=== PATIENT | male | born 1965 | race Caucasian/White ===

== ENCOUNTER 2023-06-08 07:03 | Outpatient (OUT) | payer OTHER, SELFPAY ==
--- NOTE | 2023-06-08 06:45 | NM_ITS ---
The [address] [address] Patient Name: LEWIS AVERY MRN: [id number] date: 1965 Sex: M Assigned Patient Location: [place] Location: [place] Accession/Order Number: [id number] Exam Date: 06/08/2023 06:45 Report Date: 06/08/2023 13:30 At the request of: MARK GOODSON Procedure: NV hepatobiliary w pharm EXAMINATION: NV hepatobiliary w pharm HISTORY: ABDOMINAL PAIN COMPARISON: No relevant comparison available. TECHNIQUE: Radionuclide hepatobiliary imaging was performed after intravenous injection of 4.9 mCi Tc-99m GUILLERMINA derivative with sequential acquisitions every 1 minute for one hour. Hepatobiliary imaging with gallbladder ejection fraction analysis was then performed with sequential imaging every 1 minute for 60 minutes following ingestion of 8 oz. Ensure Plus. FINDINGS: LIVER: Normal, prompt and uniform radiotracer uptake and clearing. BILIARY DUCTS: Normal radioisotopic biliary excretion. GALLBLADDER: Normal with no evidence of cystic duct obstruction. INTESTINE: Normal with no evidence of common biliary ductal obstruction. EJECTION FRACTION: 28 % within 60 minutes. (Normal EF > 38%). OTHER: Negative. NV/NV hepatobiliary w pharm IMPRESSION: 1. Abnormal, low gallbladder ejection fraction despite normal filling of the gallbladder. Findings suggest biliary dyskinesia or ball-valve type obstruction. Electronically authenticated by: SYED VITAL Date: 06/08/2023 13:30
--- NOTE | 2023-06-08 07:06 | US_ITS ---
The [address] [address] Patient Name: LEWIS AVERY MRN: [id number] date: 1965 Sex: M Assigned Patient Location: [place] Current Patient Location: [place] Accession/Order Number: [id number] Exam Date: 06/08/2023 07:12 Report Date: 06/08/2023 11:23 At the request of: MARK GOODSON Procedure: US right upper quadrant EXAMINATION: US right upper quadrant HISTORY: GENERALIZED ABDOMINAL PAIN R10.84 COMPARISON: No relevant comparison available. TECHNIQUE: Transabdominal evaluation of the right upper quadrant. FINDINGS: LIVER: Poor suspected to be due to fatty infiltration. Color Doppler demonstrates patent hepatic veins. PORTAL VEIN: Duplex Doppler demonstrates normal hepatopetal flow pattern with flow velocity averaging 17.1 cm/s. GALLBLADDER: Questionable 6 mm slightly hyperechoic area adjacent wall of fundus possibly a stone or polyp. Small amount of sludge within gallbladder. No wall thickening or free fluid. Negative sonographic Paul's sign. BILIARY: No abnormal dilation or stones. Common bile duct diameter is within normal limits. PANCREASE: Poorly seen due to bowel gas. No visible mass, abnormal atrophy, or duct dilation. KIDNEY: Hypoechoic 2.3 cm rounded area within lateral mid body cortex suspected to represent a cyst. Size: 12.5 x 5.2 x 6.4 cm US/US right upper quadrant IMPRESSION: 1. Examination is limited due to patient body habitus and overlying bowel gas. 2. Small stone adherent to the fundal gallbladder wall versus polyp. No findings to suggest acute cholecystitis. 3. Suspected right renal cyst. If clinical concern consider CT abdomen pelvis without and with IV contrast to evaluate for enhancement. Electronically authenticated by: SYED IVTAL Date: 06/08/2023 11:23
== END 2023-06-08 07:04 | disposition home or self-care (01) ==
LOC: NM 07:03
PROVIDERS: PCP Family Medicine; Visit Provider Family Medicine
DX: R10.84 Generalized abdominal pain (principal)
CPT/HCPCS: 76705; 78227; A9537

== ENCOUNTER 2024-03-18 08:49 | Outpatient (OUT) | payer OTHER, SELFPAY ==
--- OUTSIDE RECORDS SUMMARY | 2024-03-18 08:54 | XMS_ITS | CCD ---
Author Organization [facility] Inform ion Partnership [facility] Care Team Providers Care Sonoscope Operator Name Role Phone Jud Farfan Unavailable DR KATHERINE LONG Consulting Unavailable KELLEE, DR RU Dill Primary Care Unavailable DR KATHERINE LONG Attending Unavailable MERCEDES, DR TOUSSAINT Admitting Unavailable KATHERINE LONG JR Referring Unavailable RU GOODSON Primary Care Unavailable Ru Goodson MD Primary Care Provider [phone] Alexandra Burdick Unavailable Unavailable Primary Care Provider [facility] Primary Care Physician [phone] Stefan ROMANO Attending Unavailable Stefan ROMANO Attending Unavailable Allergies Allergy Classification Reported Allergen(s) Allergy Type Date of Onset Reaction(s) Facility (1 source) No Known Medication Allergies; Translations: [No Known Medication Allergies] Propensity to adverse reactions (disorder) [facility] Repository Medications Current Medications Medication Drug Class(es) Dates Sig (Normalized) Sig (Original) [id number] 200 actuat albuterol 0.09 mg/actuat metered dose inhaler (2 sources) beta2-Adrenergic Agonist Start: 08-17-2022 take 2 puff(s) by inhalation every four hours as needed Albuterol Sulfate HFA 108 (90 Base) MCG/ACT 2 puffs as needed Inhalation every 4 hrs Aug, Active Start: 08-17-2022 take 2 puff(s) by in halation every four hours as needed Albuterol Sulfate HFA 108 (90 Base) MCG/ACT 2 puffs as needed Inhalation every 4 hrs Aug, Not-Taking/PRN dutasteride 0.5 mg oral capsule (1 source) 5-alpha Reductase Inhibitor Start: 03-14-2024 take 1 capsule by mouth once daily dutasteride 0.5 mg Cap 0.5 mg = 1 cap(s), Oral, Daily, # 30 cap(s), Refills(s) 11, Pharmacy: [facility], 179, cm, 03/14/24 9:13:00 EDT, Height/Length Dosing, 177, kg, 03/14/24 9:13:00 EDT, Weight Dosing Start Date: 03/14/24 Status: Ordered methylPREDNISolone 4 mg oral tablet (5 sources) Corticosteroid Start: 08-17-2022 methylPREDNISolone 4 MG as directed Orally daily dose take half with breakfast half with dinner for 6 Jul, Active Start: 12-09-2015 Depo-Medrol 80 mg Nov, 80 mg sulfamethoxazole 800 mg / trimethoprim 160 mg oral tablet (1 source) Dihydrofolate Reductase Inhibitor Antibacterial, Sulfonamide Antimicrobial Start: 03-14-2024 End: 03-28-2024 Bactrim D.S. 800 mg-160 mg Tab 1 tab(s), Oral, BID for 14 day(s), 28 tab(s), Refill(s) 0, [facility], 179, cm, 03/14/24 9:13:00 EDT, Height/Length Dosing, 177, kg, 03/14/24 9:13:00 EDT, Weight Dosing Start Date: 03/14/24 Stop Date: 03/28/24 Status: Ordered tamsulosin hydrochloride 0.4 mg oral capsule (1 source) alpha-Adrenergic Sergey Start: 03-14-2024 take 1 capsule by mouth once daily tamsulosin 0.4 mg Cap 0.4 mg = 1 cap(s), Oral, Daily, # 30 cap(s), Refills(s) 11, Pharmacy: [facility], 179, cm, 03/14/24 9:13:00 EDT, Height/Length Dosing, 177, kg, 03/14/24 9:13:00 EDT, Weight Dosing Start Date: 03/14/24 Status: Ordered Completed/Discontinued Medications Medication Drug Class(es) Dates Sig (Normalized) Sig (Original) azithromycin 250 mg oral tablet (2 sources) Macrolide Antimicrobial Start: 08-17-2022 Azithromycin 250 MG 2 tablets on the first day, then 1 tablet daily for 4 days Orally Once a day for 5 day(s) Aug, Not-Taking/PRN Dexamethasone (2 sources) Corticosteroid Start: 09-07-2020 DEXAMETHASONE Aug, 4 mg gadoteridol (PROHANCE) injection 20 mL (1 source) Start: 12-07-2022 End: 12-07-2022 gadoteridol (PROHANCE) injection 20 mL triamcinolone acetonide 40 mg/ml injectable suspension (3 sources) Corticosteroid Start: 08-17-2022 Kenalog-40 Jul, 40 mg Problems Problem Classification Problem Date Documented Date Episodic/Chronic Calculus of urinary tract (2 sources) History of calculus of kidney; Translations: [Personal history of urinary calculi] Onset: 03-14-2024 Episodic Chronic kidney disease (1 source) Chronic kidney disease stage 2 03-10-2024 Chronic Chronic obstructive pulmonary disease and bronchiectasis (2 sources) Bronchitis, not specified as acute or chronic Episodic Disorders of lipid metabolism (1 source) Mixed hyperlipidemia 03-10-2024 Chronic Diverticulosis and diverticulitis (1 source) Diverticular disease 03-10-2024 Chronic Hyperplasia of prostate (2 sources) Benign prostatic hypertrophy with outflow obstruction; Translations: [Benign prostatic hyperplasia with lower urinary tract symptoms] Onset: 03-14-2024 Chronic Immunizations and screening for infectious disease (3 sources) Contact with and (suspected) exposure to other viral communicable diseases; Translations: [Contact with and (suspected) exposure to other viral communicable diseases] Episodic Inflammatory conditions of male genital organs (2 sources) Prostatitis; Translations: [Inflammatory disease of prostate, unspecified] Onset: 03-14-2024 Episodic Other diseases of kidney and ureters (1 source) Acquired renal cyst without neoplastic change; Translations: [Cyst of kidney, acquired] Onset: 03-14-2024 Episodic Other diseases of kidney and ureters (1 source) Cyst of kidney 03-14-2024 Episodic Other ear and sense organ disorders (6 sources) Sensorineural hearing loss, unilateral, left ear, with unrestricted hearing on the contralateral side; Translations: [Sensorineural hearing loss, unilateral] Onset: 11-28-2022 Chronic Other ear and sense organ disorders (2 sources) Sensorineural hearing loss, bilateral; Translations: [Sensorineural hearing loss, bilateral] 09-13-2023 Chronic Other nutritional; endocrine; and metabolic disorders (2 sources) Morbid obesity; Translations: [Morbid (severe) obesity due to excess calories] Onset: 03-14-2024 Chronic Results Test Name Value Interpretation Reference Range Facility Ambulatory Visit Summaryon 0 03-14-2024 Ambulatory Visit Summary Ambulatory Visit Summary LEWIS AVERY :1965 Visit Date:03/14/2024 Ambulatory Visit Instructions Your Diagnosis BPH with urinary obstruction Prostatitis History of kidney stones Renal cyst Morbid obesity Tests Performed US Renal -- Results Pending -- XR Abdomen 1 View -- Results Pending -- Please visit your patient portal for your results or contact your primary care physician. Your Care Team Attending Physician - Stefan ROMANO MD Primary Care Physician - RU GOODSON DO This Is Your Medications List dutasteride (dutasteride 0.5 mg Cap) sulfamethoxazole-trim ethoprim (Bactrim D.S. 800 mg-160 mg Tab) tamsulosin (tamsulosin 0.4 mg Cap) Procedures Performed Lithotripsy (1998). Discharge Vitals Heart Rate (Peripheral) 72 Respiratory Rate 16 Blood Pressure 132/78 Height 179 cm Height 70 in Weight 177 kg Weight 389.4 lb BMI 55.24 What to do next Scheduled Follow-Up Appointments Sunday 9:45 AM EST With: Stefan ROMANO MD Where: [facility] [address] [address]- You Need to Schedule the Following Appointments Follow Up with Stefan ROMANO MD, URL When: Where: [address] [place] [address]- Medications What How Much When Instructions New dutasteride (dutasteride 0.5 mg Cap) 1 Capsules By Mouth Every day Refills: 11 Pickup at [facility] New sulfamethoxazole-trim ethoprim (Bactrim D.S. 800 mg-160 mg Tab) 1 Tablets By Mouth 2 times a day Duration: 14 Days Pickup at [facility] New tamsulosin (tamsulosin 0.4 mg Cap) 1 Capsules By Mouth Every day Refills: 11 Pickup at [facility] Pharmacy Information [facility]: [address] [place], [place] [id number] [phone] Allergies No Known Medication Allergies Problems Ongoing - Any problem that you are currently receiving treatment for. BPH with urinary obstruction Chronic kidney disease stage 2 Diverticular disease History of kidney stones Mixed hyperlipidemia Morbid obesity Prostatitis Renal cyst Patient Survey You may receive a survey via text or e-mail asking about your office visit. Please share your experience with us by completing your survey. We appreciate your feedback and thank you for choosing us for your care. Education Materials Benign Prostatic Hyperplasia Benign prostatic hyperplasia (BPH) is an enlarged prostate gland that is caused by the normal aging process. The prostate may get bigger as a man gets older. The condition is not caused by cancer. The prostate is a walnut-sized gland that is involved in the production of semen. It is located in front of the rectum and below the bladder. The bladder stores urine. The urethra carries stored urine out of the body. An enlarged prostate can press on the urethra. This can make it harder to pass urine. The buildup of urine in the bladder can cause infection. Back pressure and infection may progress to bladder damage and kidney (renal) failure. What are the causes? This condition is part of the normal aging process. However, not all men develop problems from this condition. If the prostate enlarges away from the urethra, urine flow will not be blocked. If it enlarges toward the urethra and compresses it, there will be problems passing urine. What increases the risk? This condition is more likely to develop in men older than 50 years. What are the signs or symptoms? Symptoms of this condition include: ? Getting up often during the night to urinate. ? Needing to urinate frequently during the day. ? Difficulty starting urine flow. ? Decrease in size and strength of your urine stream. ? Leaking (dribbling) after urinating. ? Inability to pass urine. This needs immediate treatment. ? Inability to completely empty your bladder. ? Pain when you pass urine. This is more common if there is also an infection. ? Urinary tract infection (UTI). How is this diagnosed? This condition is diagnosed based on your medical history, a physical exam, and your symptoms. Tests will also be done, such as: ? A post-void bladder scan. This measures any amount of urine that may remain in your bladder after you finish urinating. ? A digital rectal exam. In a rectal exam, your health care provider checks your prostate by putting a lubricated, gloved finger into your rectum to feel the back of your prostate gland. This exam detects the size of your gland and any abnormal lumps or growths. ? An exam of your urine (urinalysis). ? A prostate specific antigen (PSA) screening. This is a blood test used to screen for prostate cancer. ? An ultrasound. This test uses sound waves to electronically produce a picture of your prostate gland. Your health care provider may refer you to a (more content not included)... Normal [facility] Urology Office/Clinic Noteon 03-14-2024 Urology Office/Clinic Note Urology Office/Clinic Note Chief Complaint New Pt *Establish Care HPI Staff Pt is a new pt. Never before seen in our office. (Verified on DA) Hx of Kidney Stones. Hx of Lithotripsy 20+ yrs ago. Concerned he may have kidney stones currently. Denies flank pain, has been having intermittent back pain. Denies visible blood in urine. Frequency during the day with increased tea consumption. Gets up 3x/night to void. Occasional straining, unsteady stream. Does not feel empty all the time, occasional double voids. PSA 01/31/20- 2.49 05/30/23- 2.33 History of Present Illness Tests reviewed: reviewed UA, US R quadrant, PSAs, external records. I have reviewed the previous health record information and history for this patient from external provider. I have reviewed and verified the staff HPI to be accurate for this encounter. There have been no associated fever, chills, flank pain, or blood in the urine. Denies any urinary infections since last encounter. Review of Systems PHQ Score Initial Depression Screen Score: 0 SCORE ROS - Provider Constitutional: denies weight loss, denies hot flashes. Eyes: denies eye problems. Gastrointestinal: denies nausea, denies vomiting. Cardiovascular: denies chest pain or angina. Integumentary: no dryness Musculoskeletal: denies musculoskeletal symptoms. ENMT: denies otolaryngeal symptoms. Respiratory: no shortness of breath. Heme/Lymph: denies easy bleeding tendency, denies easy bruising tendency. Psychiatric: no confusion, no anxiety. Genitourinary: See HPI. Physical Exam Vitals & Measurements HR: 72(Peripheral) RR: 16 BP: 132/78 HT: 70 in HT: 179 cm WT: 177 kg WT: 389.4 lb BMI: 55.24 General Appearance: alert, no distress, well nourished, well developed male. Head: normocephalic . Eyes: normal orbit and globe. ENMT: normal examination of external ears. Lymph Nodes: unremarkable palpation of the cervical area. Skin: warm, dry, no bruising. Psychiatric: cooperative, affect appropriate for age, normal judgement, euthymic mood. Assessment/Plan New pt to our office wishing to establish care due to hx of kidney stones. 1. BPH with urinary obstruction (N40.1: Benign prostatic hyperplasia with lower urinary tract symptoms) PSA: 01/31/20 - 2.49 05/30/23 - 2.33 ~Checked by external provider IPSS 24 Nocturia 3x. Occasional straining. Has an unsteady stream. Feels he does not empty. Intermittently has to double void. Denies urgency or leakage unless he holds it for too long. Pt mentions that he notice an improvement in urination after orgasm. States this does not last long. Has taken a med in the past but does not remember the name. States he will not take this again. Advised pt that given his sx I recommend starting an alpha-sergey. Explained to pt how med works and possible SE. Also discussed starting a prostate surgical corsetier to work along with alpha-sergey. Pt agrees to start new meds. -Begin Flomax 0.4mg qd & Dutasteride 0.5mg qd -Monitor for SE -Timed voids Follow up in 3 mos w/ PVR or sooner if needed. 2. Prostatitis (N41.9: Inflammatory disease of prostate, unspecified) UA today shows trace leuks. Asx. No hx of prostatitis or UTI. Explained to pt that he likely has a low grade infection due to incomplete emptying. Starting an abx is recommended. Pt agrees. Also advised pt to limit sun exposure. -Begin Bactrim DS bid x 7 days 3. History of kidney stones (Z87.442: Personal history of urinary calculi) Hx of lithotripsy 20+ years ago. No episodes since. Has passed stones on his own, first stone was 23 yo. US R upper quadrant 06/08/23 TB - No stones mentioned on the R. Pt shares he drinks a high volume of tea with lemon. Used to drink 2 gallons per day, has cut back. Shares that he has concerns of having kidney stones currently. Denies flank pain but has intermittent back pain. Denies gross hematuria. Recommended ordering KUB and SO for further eval. Pt agrees w/ plan. -Sched renal US & KUB -Pt to be called with results 4. Renal cyst (N28.1: Cyst of kidney, acquired) US R upper quadrant 06/08/23 TBH - hypoechoic 2.3 cm rounded area within lateral mid body cortex suspected to represent a cyst. Measures 12.5 cm. -Sched renal US for #3 5. Morbid obesity (E66.01: Morbid (severe) obesity due to excess calories) Risk for anesthesia complications. Follow-up With When Contact Information LEONOR LÓPEZ, Stefan Crockett, URL [address] [place] [address]- Additional Instructions: 3 mos w/ PVR Patient Education Benign Prostatic Hyperplasia I, Maureen Dumont, personally scribed for Dr. Romano on 03/14/2024 10:03:00. . Documentation recorded by the scribe, Maureen Dumont, accurately reflects the services(s) I performed and decisions made by me. Authenticated by Dr. Romano on 03/14/2024 10:10:00. Problem List/Past Medical History Ongoing BPH with urinary (more content not included)... Normal [facility] Comment on above: Result Comment: Elec tronically Signed By: Stefan ROMANO MD\.br\Date and Time Signed: 03/14/24 10:10 EDT\.br\Electronically Co-Signed By: Maureen Dumont\.br\Date and Time Co-Signed: 03/14/24 10:03 EDT CBC WITH DIFFon 05-30-2023 ABS BASOPHIL 0.02 x10^3ul Normal (0.00 - 0.16) [facility] Comment on above: Order Comment: FACIL ITY: [facility] [id number] Performed By: #### C BC/D, CHEM-C, LIPID, TSHT34, B12+, PSA-S #### [facility] [address] [facility], [address] ABS EOSINOPHIL 0.15 x10^3ul Normal (0.00 - 0.40) [facility] Comment on above: Order Comment: FACIL ITY: [facility] [id number] Performed By: #### C BC/D, CHEM-C, LIPID, TSHT34, B12+, PSA-S #### [facility] [address] [facility], [address] ABS IMMATURE GRANS 0.02 x10^3ul Normal (0.00 - 0.11) [facility] Comment on above: Order Comment: FACIL ITY: [facility] [id number] Performed By: #### C BC/D, CHEM-C, LIPID, TSHT34, B12+, PSA-S #### [facility] [address] [facility], [address] ABS LYMPHOCYTE 1.44 x10^3ul Normal (0.96 - 5.40) [facility] Comment on above: Order Comment: FACIL ITY: [facility] [id number] Performed By: #### C BC/D, CHEM-C, LIPID, TSHT34, B12+, PSA-S #### [facility] [address] [facility], [address] ABS MONOCYTE 0.50 x10^3ul Normal (0.10 - 1.00) [facility] Comment on above: Order Comment: FACIL ITY: [facility] [id number] Performed By: #### C BC/D, CHEM-C, LIPID, TSHT34, B12+, PSA-S #### [facility] [address] [facility], [address] ABS NEUTROPHIL 3.06 x10^3ul Normal (1.50 - 7.00) [facility] Comment on above: Order Comment: FACIL ITY: [facility] [id number] Performed By: #### C BC/D, CHEM-C, LIPID, TSHT34, B12+, PSA-S #### [facility] [address] [place], [address] Basophils/100 WBC (Bld) 0.4 % Normal () [facility] Comment on above: Order Comment: FACIL ITY: [facility] [id number] Performed By: #### C BC/D, CHEM-C, LIPID, TSHT34, B12+, PSA-S #### [facility] [address] [place], [address] Eosinophils/100 WBC (Bld) 2.9 % Normal () [facility] Comment on above: Order Comment: FACIL ITY: [facility] [id number] Performed By: #### C BC/D, CHEM-C, LIPID, TSHT34, B12+, PSA-S #### [facility] [address] [facility], [address] Hematocrit (Bld) [Volume fraction] 44.7 % Normal (42.0 - 52.0) [facility] Comment on above: Order Comment: FACIL ITY: [facility] [id number] Performed By: #### C BC/D, CHEM-C, LIPID, TSHT34, B12+, PSA-S #### [facility] [address] [place], [address] Hemoglobin (Bld) [Mass/Vol] 14.7 g/dL Normal (14.0 - 18.0) [facility] Comment on above: Order Comment: FACIL ITY: [facility] [id number] Performed By: #### C BC/D, CHEM-C, LIPID, TSHT34, B12+, PSA-S #### [facility] [address] [place], [address] IMMATURE GRANS (IG) 0.4 % Normal () [facility] Comment on above: Order Comment: FACIL ITY: [facility] [id number] Performed By: #### C BC/D, CHEM-C, LIPID, TSHT34, B12+, PSA-S #### [facility] [address] [place], [address] LYMPS 27.7 % Normal () [facility] Comment on above: Order Comment: FACIL ITY: [facility] [id number] Performed By: #### C BC/D, CHEM-C, LIPID, TSHT34, B12+, PSA-S #### [facility] [address] [place], [address] MCH (RBC) [Entitic mass] 32.0 pg Normal (27.0 - 33.0) [facility] Comment on above: Order Comment: FACIL ITY: [facility] [id number] Performed By: #### C BC/D, CHEM-C, LIPID, TSHT34, B12+, PSA-S #### [facility] [address] [place], [address] MCHC (RBC) [Mass/Vol] 32.9 g/dL Normal (30.0 - 37.0) [facility] Comment on above: Order Comment: FACIL ITY: [facility] [id number] Performed By: #### C BC/D, CHEM-C, LIPID, TSHT34, B12+, PSA-S #### [facility] [address] [place], [address] MCV (RBC) [Entitic vol] 97.4 fL High (80.0 - 94.0) [facility] Comment on above: Order Comment: FACIL ITY: [facility] [id number] Performed By: #### C BC/D, CHEM-C, LIPID, TSHT34, B12+, PSA-S #### [facility] [address] [place], [address] MONOS 9.6 % Normal () [facility] Comment on above: Order Comment: FACIL ITY: [facility] [id number] Performed By: #### C BC/D, CHEM-C, LIPID, TSHT34, B12+, PSA-S #### [facility] [address] [place], [address] PLT 194 x10^3ul Normal (130 - 400) [facility] Comment on above: Order Comment: FACIL ITY: [facility] [id number] Performed By: #### C BC/D, CHEM-C, LIPID, TSHT34, B12+, PSA-S #### [facility] [address] [place], [address] RBC 4.59 x10^6ul Low (4.70 - 6.10) [facility] Comment on above: Order Comment: FACIL ITY: [facility] [id number] Performed By: #### C BC/D, CHEM-C, LIPID, TSHT34, B12+, PSA-S #### [facility] [address] [place], [address] RDW-SD 46.5 fl Normal (37.0 - 49.0) [facility] Comment on above: Order Comment: FACIL ITY: [facility] [id number] Performed By: #### C BC/D, CHEM-C, LIPID, TSHT34, B12+, PSA-S #### [facility] [address] [place], [address] SEGS 59.0 % Normal () [facility] Comment on above: Order Comment: FACIL ITY: [facility] [id number] Performed By: #### C BC/D, CHEM-C, LIPID, TSHT34, B12+, PSA-S #### [facility] [address] [place], [address] WBC 5.19 x10^3ul Normal (3.80 - 10.60) [facility] Comment on above: Order Comment: FACIL ITY: [facility] [id number] Performed By: #### C BC/D, CHEM-C, LIPID, TSHT34, B12+, PSA-S #### [facility] [address] [place], [address] COMP METABOLIC PANEL W/GFRon 05-30-2023 Albumin [Mass/Vol] 4.5 g/dL Normal (3.5 - 5.0) [facility] Comment on above: Performed By: #### C BC/D, CHEM-C, LIPID, TSHT34, B12+, PSA-S #### [facility] [address] [place], [address] ALK PHOS 65 U/L Normal (38 - 126) [facility] Comment on above: Performed By: #### C BC/D, CHEM-C, LIPID, TSHT34, B12+, PSA-S #### [facility] [address] [place], [address] ALT [Catalytic activity/Vol] 57 U/L High (1 - 45) [facility] Comment on above: Performed By: #### C BC/D, CHEM-C, LIPID, TSHT34, B12+, PSA-S #### [facility] [address] [place], [address] AST [Catalytic activity/Vol] 31 U/L Normal (15 - 46) [facility] Comment on above: Performed By: #### C BC/D, CHEM-C, LIPID, TSHT34, B12+, PSA-S #### [facility] [address] [place], [address] Bilirubin [Mass/Vol] 0.7 mg/dL Normal (0.2 - 1.3) [facility] Comment on above: Performed By: #### C BC/D, CHEM-C, LIPID, TSHT34, B12+, PSA-S #### [facility] [address] [place], [address] Calcium [Mass/Vol] 9.5 mg/dL Normal (8.6 - 10.6) [facility] Comment on above: Performed By: #### C BC/D, CHEM-C, LIPID, TSHT34, B12+, PSA-S #### [facility] [address] [place], [address] Chloride [Moles/Vol] 106 mmol/L Normal (98 - 107) [facility] Comment on above: Performed By: #### C BC/D, CHEM-C, LIPID, TSHT34, B12+, PSA-S #### [facility] [address] [place], [address] CO2 [Moles/Vol] 26 mmol/L Normal (22 - 30) [facility] Comment on above: Performed By: #### C BC/D, CHEM-C, LIPID, TSHT34, B12+, PSA-S #### [facility] [address] [place], [address] Creatinine [Mass/Vol] 1.01 mg/dL Normal (0.66 - 1.25) [facility] Comment on above: Performed By: #### C BC/D, CHEM-C, LIPID, TSHT34, B12+, PSA-S #### [facility] [address] [place], [address] GFR- AMER 91.5 ML/M1.7 Normal (60.0 - 161.8) [facility] Comment on above: Performed By: #### C BC/D, CHEM-C, LIPID, TSHT34, B12+, PSA-S #### [facility] [address] [place], [address] GFR-NON AFRIC-AMER 75.6 ML/M1.7 Normal (60.0 - 133.8) [facility] Comment on above: Performed By: #### C BC/D, CHEM-C, LIPID, TSHT34, B12+, PSA-S #### [facility] [address] [place], [address] Glucose [Mass/Vol] 94 mg/dL Normal (74 - 106) [facility] Comment on above: Performed By: #### C BC/D, CHEM-C, LIPID, [id number], B12+, PSA-S #### [place] [facility] [address] [place], [address] Potassium [Moles/Vol] 5.0 mmol/L Normal (3.5 - 5.1) [facility] Comment on above: Performed By: #### C BC/D, CHEM-C, LIPID, TSHT34, B12+, PSA-S #### [facility] [address] [place], [address] Protein [Mass/Vol] 7.2 g/dL Normal (6.3 - 8.2) [facility] Comment on above: Performed By: #### C BC/D, CHEM-C, LIPID, TSHT34, B12+, PSA-S #### [facility] [address] [place], [address] Sodium [Moles/Vol] 142 mmol/L Normal (137 - 145) [facility] Comment on above: Performed By: #### C BC/D, CHEM-C, LIPID, TSHT34, B12+, PSA-S #### [facility] [address] [place], [address] Urea nitrogen [Mass/Vol] 12 mg/dL Normal (9 - 20) [facility] Comment on above: Performed By: #### C BC/D, CHEM-C, LIPID, TSHT34, B12+, PSA-S #### [place] [facility] [address] [place], [address] LIPID PROFILEon 05-30-2023 CHOL-HDL RATIO 7.2 High (0.0 - 5.0) [facility] Comment on above: Result Comment: CHOL REFERENCE RANGE: DESIRABLE: < 200 MG/DL BORDERLINE: 200 - 239 MG/DL HIGH RISK: > 240 MG/DL HDL REFERENCE RANGE: DESIRABLE: >45 MG/DL BORDERLINE: 32 - 45 MG/DL HIGH RISK: < 32 MG/DL LDL REFERENCE RANGE: DESIRABLE: < 130 MG/DL BORDERLINE: 130 - 159 MG/DL HIGH RISK: > 160 MG/DL CHOL-HDL RATIO: MALE: LOW RISK : 0 - 5.0, MOD RISK: 5.1 - 9.6, HIGH RISK: > 9.6 FEMALE: LOW RISK : 0 - 4.4, MOD RISK: 4.5 - 7.1, HIGH RISK: > 7.1 Performed By: #### C BC/D, CHEM-C, LIPID, TSHT34, B12+, PSA-S #### [place] [facility] [address] [facility], [address] Cholesterol [Mass/Vol] 246 mg/dL High (120 - 200) [facility] Comment on above: Performed By: #### C BC/D, CHEM-C, LIPID, TSHT34, B12+, PSA-S #### [facility] [address] [place], [address] Cholesterol in HDL [Mass/Vol] 34 mg/dL Low (40.0 - 60.0) [facility] Comment on above: Performed By: #### C BC/D, CHEM-C, LIPID, TSHT34, B12+, PSA-S #### [place] [facility] [address] [place], [address] Cholesterol in LDL [Mass/Vol] 160 mg/dL High (0 - 130) [facility] Comment on above: Performed By: #### C BC/D, CHEM-C, LIPID, TSHT34, B12+, PSA-S #### [facility] [address] [facility], [address] Cholesterol in VLDL [Mass/Vol] 52 mg/dL High (7 - 46) [facility] Comment on above: Performed By: #### C BC/D, CHEM-C, LIPID, TSHT34, B12+, PSA-S #### [facility] [address] [facility], [address] Triglyceride [Mass/Vol] 259 mg/dL High (30 - 150) [facility] Comment on above: Performed By: #### C BC/D, CHEM-C, LIPID, TSHT34, B12+, PSA-S #### [facility] [address] [facility], [address] PSAon 05-30-2023 PROSTATE SP AG 2.33 NG/ML Normal (0.00 - 4.00) [facility] Comment on above: Result Comment: PSA performed on [employer]. An immunometric equimolar test technique. PSA Min. Detection = 0.06 NG/ML. Patient results determined by assays using different manufactures and/or methods may not be comparable. Performed By: #### C BC/D, CHEM-C, LIPID, TSHT34, B12+, PSA-S #### [facility] [address] [facility], [address] T3 FREE, T4 FREE AND TSHon 1 Free T3 [Mass/Vol] 4.62 pg/mL Normal (2.71 - 6.16) [facility] Comment on above: Performed By: #### C BC/D, CHEM-C, LIPID, TSHT34, B12+, PSA-S #### [facility] [address] [facility], [address] Free T4 [Mass/Vol] 1.23 ng/dL Normal (0.64 - 1.79) [facility] Comment on above: Performed By: #### C BC/D, CHEM-C, LIPID, TSHT34, B12+, PSA-S #### [facility] [address] [facility], [address] TSH Qn 1.47 m[IU]/L Normal (0.470 - 4.680) [facility] Comment on above: Performed By: #### C BC/D, CHEM-C, LIPID, TSHT34, B12+, PSA-S #### [facility] [address] [facility], [address] VIT B12 AND FOLATEon 023 Cobalamin (Vitamin B12) [Mass/Vol] 297 pg/mL Normal (239 - 931) [facility] Comment on above: Performed By: #### C BC/D, CHEM-C, LIPID, TSHT34, B12+, PSA-S #### [facility] [address] [facility], [address] FOLIC ACID 5.7 NG/ML Normal (2.8 - 20.0) [facility] Comment on above: Performed By: #### C BC/D, CHEM-C, LIPID, TSHT34, B12+, PSA-S #### [facility] [address] [facility], [address] MRI BRAIN W WO CONTRASTon MRI BRAIN W WO CONTRAST EXAMINATION: MRI OF THE BRAIN WITHOUT AND WITH CONTRAST 12/07/2022 2:21 pm TECHNIQUE: Multiplanar multisequence MRI of the head/brain was performed without and with the administration of intravenous contrast. COMPARISON: None. HISTORY: ORDERING SYSTEM PROVIDED HISTORY: Sensorineural hearing loss (SNHL) of left ear with unrestricted hearing of right ear TECHNOLOGIST PROVIDED HISTORY: STAT Creatinine as needed:->No What reading provider will be dictating this exam?->CRC Initial evaluation. FINDINGS: INTERNAL AUDITORY CANALS: No mass or abnormal enhancement within the cerebellopontine angle cisterns or internal auditory canals. No abnormal enhancement seen along of the facial or vestibulocochlear nerves. The inner ear structures appear unremarkable. The middle ear cavities are clear. INTRACRANIAL STRUCTURES/VENTRICLES : There is no evidence of an acute infarct. There is a chronic infarct involving the left frontal/parietal lobe. A tiny chronic infarct is seen involving the right occipital lobe. No mass effect or midline shift. No evidence of an acute intracranial hemorrhage. No abnormal extra-axial fluid collection. Areas of T2 FLAIR hyperintensity are seen in the periventricular and subcortical white matter, which are nonspecific, but may represent chronic microvascular ischemic change. There is mild global parenchymal volume loss. Otherwise, the ventricles and sulci are normal in size and configuration. A partial empty sella is noted. The normal signal voids within the major intracranial vessels appear maintained. No abnormal focus of enhancement is seen within the brain. ORBITS: The visualized portion of the orbits demonstrate no acute abnormality. SINUSES: The visualized paranasal sinuses and mastoid air cells are well aerated. BONES/SOFT TISSUES: The bone marrow signal intensity appears normal. The soft tissues demonstrate no acute abnormality. IMPRESSION: 1. No acute intracranial abnormality. No acute infarct. 2. No abnormality seen within the cerebellar pontine angle cisterns or internal auditory canals. 3. 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 4. Mild global parenchymal volume loss with minimal chronic microvascular ischemic changes. Interpreted by: Jeremiah Love MD Signed by: Jeremiah Love MD 12/07/22 Final result Normal [facility] 1. No acute intracranial abnormality. No acute infarct. 2. No abnormality seen within the cerebellar pontine angle cisterns or internal auditory canals. 3. 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 4. Mild global parenchymal volume loss with minimal chronic microvascular ischemic changes. [facility] RADIOLOGY EXAMINATION: MRI OF THE BRAIN WITHOUT AND WITH CONTRAST 12/07/2022 2:21 pm TECHNIQUE: Multiplanar multisequence MRI of the head/brain was performed without and with the administration of intravenous contrast. COMPARISON: None. HISTORY: ORDERING SYSTEM PROVIDED HISTORY: Sensorineural hearing loss (SNHL) of left ear with unrestricted hearing of right ear TECHNOLOGIST PROVIDED HISTORY: STAT Creatinine as needed:->No What reading provider will be dictating this exam?->CRC Initial evaluation. FINDINGS: INTERNAL AUDITORY CANALS: No mass or abnormal enhancement within the cerebellopontine angle cisterns or internal auditory canals. No abnormal enhancement seen along of the facial or vestibulocochlear nerves. The inner ear structures appear unremarkable. The middle ear cavities are clear. INTRACRANIAL STRUCTURES/VENTRICLES : There is no evidence of an acute infarct. There is a chronic infarct involving the left frontal/parietal lobe. A tiny chronic infarct is seen involving the right occipital lobe. No mass effect or midline shift. No evidence of an acute intracranial hemorrhage. No abnormal extra-axial fluid collection. Areas of T2 FLAIR hyperintensity are seen in the periventricular and subcortical white matter, which are nonspecific, but may represent chronic microvascular ischemic change. There is mild global parenchymal volume loss. Otherwise, the ventricles and sulci are normal in size and configuration. A partial empty sella is noted. The normal signal voids within the major intracranial vessels appear maintained. No abnormal focus of enhancement is seen within the brain. ORBITS: The visualized portion of the orbits demonstrate no acute abnormality. SINUSES: The visualized paranasal sinuses and mastoid air cells are well aerated. BONES/SOFT TISSUES: The bone marrow signal intensity appears normal. The soft tissues demonstrate no acute abnormality. [facility] RADIOLOGY Jeremiah Love MD - 12/07/2022 EXAMINATION: MRI OF THE BRAIN WITHOUT AND WITH CONTRAST 12/07/2022 2:21 pm TECHNIQUE: Multiplanar multisequence MRI of the head/brain was performed without and with the administration of intravenous contrast. COMPARISON: None. HISTORY: ORDERING SYSTEM PROVIDED HISTORY: Sensorineural hearing loss (SNHL) of left ear with unrestricted hearing of right ear TECHNOLOGIST PROVIDED HISTORY: STAT Creatinine as needed:->No What reading provider will be dictating this exam?->CRC Initial evaluation. FINDINGS: INTERNAL AUDITORY CANALS: No mass or abnormal enhancement within the cerebellopontine angle cisterns or internal auditory canals. No abnormal enhancement seen along of the facial or vestibulocochlear nerves. The inner ear structures appear unremarkable. The middle ear cavities are clear. INTRACRANIAL STRUCTURES/VENTRICLES : There is no evidence of an acute infarct. There is a chronic infarct involving the left frontal/parietal lobe. A tiny chronic infarct is seen involving the right occipital lobe. No mass effect or midline shift. No evidence of an acute intracranial hemorrhage. No abnormal extra-axial fluid collection. Areas of T2 FLAIR hyperintensity are seen in the periventricular and subcortical white matter, which are nonspecific, but may represent chronic microvascular ischemic change. There is mild global parenchymal volume loss. Otherwise, the ventricles and sulci are normal in size and configuration. A partial empty sella is noted. The normal signal voids within the major intracranial vessels appear maintained. No abnormal focus of enhancement is seen within the brain. ORBITS: The visualized portion of the orbits demonstrate no acute abnormality. SINUSES: The visualized paranasal sinuses and mastoid air cells are well aerated. BONES/SOFT TISSUES: The bone marrow signal intensity appears normal. The soft tissues demonstrate no acute abnormality. IMPRESSION: 1. No acute intracranial abnormality. No acute infarct. 2. No abnormality seen within the cerebellar pontine angle cisterns or internal auditory canals. 3. 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 4. Mild global parenchymal volume loss with minimal chronic microvascular ischemic changes. [facility] [facility] Phone: Radiology Study observation (narrative) [employer] [facility] Phone: MRI BRAIN W WO CONTRASTOrder ed By: Jeremiah Love on 12-07-2022 [facility] Phone: COVID/FLU/RSV RT-PCRon 08-17 SARS-CoV-2 (COVID-19) RNA FER+probe Ql (Unsp spec) Negative [facility] [employer] Other COVID/FLU/RSV RT-PCR Negative [facility] [employer] Other Vital Signs Date Time Vital Sign Value Performing Clinician Facility 03-14-2024 09:07-0400 Blood Pressure Location Stefan ROMANO [facility] 03-14-2024 09:07-0400 Diastolic blood pressure 78 mm[Hg] Stefan ROMANO [facility] 03-14-2024 09:07-0400 Heart rate 72 /min Stefan ROMANO [facility] 03-14-2024 09:07-0400 Respiratory rate 16 /min Stefan ROMANO [facility] 03-14-2024 09:07-0400 Systolic blood pressure 132 mm[Hg] Stefan ROMANO [facility] 08-07-2023 18:05-0500 Body height 177.8 cm Alexandra Burdick Other [facility] Other 08-07-2023 18:05-0500 Body mass index (BMI) [Ratio] 56.9 kg/m2 Alexandra Burdick Other [facility] Other 08-07-2023 18:05-0500 Body temperature 98.5 [degF] Alexandra Burdick Other [facility] Other 08-07-2023 18:05-0500 Body weight 179.9 kg Alexandra Burdick Other [facility] Other 08-07-2023 18:05-0500 Respiratory rate 18 /min Alexandra Burdick Other [facility] Other 08-07-2023 18:05-0500 SaO2% (BldA) [Mass fraction] 95 % Alexandra Burdick Other [facility] Other 08-17-2022 11:00-0500 Body height 177.8 cm Jud Adolph Other [facility] Other 08-17-2022 11:00-0500 Body mass index (BMI) [Ratio] 51.22 kg/m2 Jud Farfan Other [facility] Other 08-17-2022 11:00-0500 Body temperature 97.3 [degF] Jud Farfan Other [facility] Other 08-17-2022 11:00-0500 Body weight 161.94 kg Jud Farfan Other [facility] Other 08-17-2022 11:00-0500 Respiratory rate 18 /min Jud Farfan Other [facility] Other 08-17-2022 11:00-0500 SaO2% (BldA) [Mass fraction] 92 % Jud Farfan Other [facility] Other Encounters Encounter Date Encounter Type Care Provider Facility Start: 06-20-2024 ambulatory Stefan ROMANO Facili ty:[facility] [place] Start: 03-14-2024 End: 03-14-2024 ambulatory Stefan ROMANO Facility:[facility] Start: 03-14-2024 End: 03-14-2024 Patient encounter [facility] Start: 11-14-2023 End: 11-14-2023 ambulatory Not Available Start: 10-29-2023 End: 10-29-2023 ambulatory Not Available Start: 09-12-2023 End: 09-12-2023 ambulatory Not Available Start: 09-12-2023 End: 09-12-2023 Patient encounter procedure [facility] Ed[facility] TAYLORS AUD Comment on above: Sensorineural hearin g loss (SNHL) of both ears (Primary Dx) Start: 08-17-2023 ambulatory Stefan ROMANO Facility :[facility] Start: 08-07-2023 End: 08-07-2023 ambulatory Alexandra Burdick Other [facility] [employer] Other Start: 08-07-2023 Office outpatient vi sit 15 minutes Alexandra Burdick [facility] Start: 12-07-2022 End: 12-10-2022 ambulatory KATHERINE LONG [facility] Start: 12-07-2022 End: 12-09-2022 Subsequent hospital visit by physician Mike Meehan Mri Room 1 [facility] MRI Comment on above: Sensorineural hearin g loss (SNHL) of left ear with unrestricted hearing of right ear Start: 11-28-2022 End: 11-29-[address] KATHERINE LONG Facility:[facility] Start: 08-17-2022 End: 08-17-2022 ambulatory Jud Farfan Other [place] [employer] Other Start: 08-17-2022 Office outpatient vi sit 15 minutes Jud Farfan [facility] Procedures Date Procedure Procedure Detail Performing Clinician Start: 12-07-2022 Mri brain brain stem w/o w/contrast material Katherine Long Work Phone: Start: 08-13-1998 Lithotripsy Stefan LANDRY Plan of Treatment Date Care Activity Detail Author Start: 03-13-2023 Influenza vaccination Flu vacc ine (Season Ended) [facility] Start: 11-07-2013 Shingles vaccine (1 of 2) Shingles vaccine (1 of 2) [facility] Start: 11-07-2008 Screening for malign ant neoplasm of colon [facility] Start: 2003 Lipid panel Lipids [facility] Start: 11-07-1982 DTaP/Tdap/Td vaccine (1 - Tdap) DTaP/Tdap/Td vaccine (1 - Tdap) [facility] Start: 11-07-1981 Hepatitis C screening Hepatitis C sc reen [facility] Start: 11-07-1978 HIV screening HIV screen [facility] Start: 1975 Depression Screen Depression Screen [facility] Start: 05-10-1964 COVID-19 Vaccine (#1) COVID-19 Vacci ne (#1) [facility] Payers Date Payer Category Payer Unknown [id number] 2023 Unknown [employer] [facility] [id number] 2023-Present [phone] [place] [id number] 2022 Unknown [id number] 1965 Unknown [id number] 1963 Unknown [id number] 2 1963 Unknown [id number] 1963 Unknown [id number] 1963 Unknown [id number] 59 1963 Unknown [id number] 7 1963 Unknown [id number] Social History Date Type Detail Facility Unknown if ever smoked [facility] Other Sex Assigned At [facility] Tobacco smoking status MDIS Tobacco smoking consumption unknown [facility] [employer] Phone: Start: 1965 Sex Assigned At Not on file [facility] [employer] Phone: Start: 03-14-2024 Tobacco smoking status Never smoked tobacco (finding) [facility] Tobacco smoking status Never [facility] Functional Status Date Assessment Result Facility 03-14-2024 Functional Status N/A [facility] Clinical Notes 08-17-2022 to 03-14-2024 Edie Sears MA - 09/12/2023 3:15 PM EST Note Date & Type Note Facility 03-14-2024 Hospital Discharge instructions Patient Education 03/14/2024 10:02:38 Benign Prostatic Hyperplasia Benign Prostatic Hyperplasia Benign prostatic hyperplasia (BPH) is an enlarged prostate gland that is caused by the normal aging process. The prostate may get bigger as a man gets older. The condition is not caused by cancer. The prostate is a walnut-sized gland that is involved in the production of semen. It is located in front of the rectum and below the bladder. The bladder stores urine. The urethra carries stored urine out of the body. An enlarged prostate can press on the urethra. This can make it harder to pass urine. The buildup of urine in the bladder can cause infection. Back pressure and infection may progress to bladder damage and kidney (renal) failure. What are the causes? This condition is part of the normal aging process. However, not all men develop problems from this condition. If the prostate enlarges away from the urethra, urine flow will not be blocked. If it enlarges toward the urethra and compresses it, there will be problems passing urine. What increases the risk? This condition is more likely to develop in men older than 50 years. What are the signs or symptoms? Symptoms of this condition include: Getting up often during the night to urinate. Needing to urinate frequently during the day. Difficulty starting urine flow. Decrease in size and strength of your urine stream. Leaking (dribbling) after urinating. Inability to pass urine. This needs immediate treatment. Inability to completely empty your bladder. Pain when you pass urine. This is more common if there is also an infection. Urinary tract infection (UTI). How is this diagnosed? This condition is diagnosed based on your medical history, a physical exam, and your symptoms. Tests will also be done, such as: A post-void bladder scan. This measures any amount of urine that may remain in your bladder after you finish urinating. A digital rectal exam. In a rectal exam, your health care provider checks your prostate by putting a lubricated, gloved finger into your rectum to feel the back of your prostate gland. This exam detects the size of your gland and any abnormal lumps or growths. An exam of your urine (urinalysis). A prostate specific antigen (PSA) screening. This is a blood test used to screen for prostate cancer. An ultrasound. This test uses sound waves to electronically produce a picture of your prostate gland. Your health care provider may refer you to a specialist in kidney and prostate diseases (urologist). How is this treated? Once symptoms begin, your health care provider will monitor your condition (active surveillance or watchful waiting). Treatment for this condition will depend on the severity of your condition. Treatment may include: Observation and yearly exams. This may be the only treatment needed if your condition and symptoms are mild. Medicines to relieve your symptoms, including: ?Medicines to shrink the prostate. ?Medicines to relax the muscle of the prostate. Surgery in severe cases. Surgery may include: ?Prostatectomy. In this procedure, the prostate tissue is removed completely through an open incision or with a laparoscope or robotics. ?Transurethral resection of the prostate (TURP). In this procedure, a tool is inserted through the opening at the tip of the penis (urethra). It is used to cut away tissue of the inner core of the prostate. The pieces are removed through the same opening of the penis. This removes the blockage. ?Transurethral incision (TUIP). In this procedure, small cuts are made in the prostate. This lessens the prostate's pressure on the urethra. ?Transurethral microwave thermotherapy (TUMT). This procedure uses microwaves to create heat. The heat destroys and removes a small amount of prostate tissue. ?Transurethral needle ablation (TUNA). This procedure uses radio frequencies to destroy and remove a small amount of prostate tissue. ?Interstitial laser coagulation (ILC). This procedure uses a laser to destroy and remove a small amount of prostate tissue. ?Transurethral electrovaporization (TUVP). This procedure uses electrodes to destroy and remove a small amount of prostate tissue. ?Prostatic urethral lift. This procedure inserts an implant to push the lobes of the prostate away from the urethra. Follow these instructions at home: Take [id number] and prescription medicines only as told by your health care provider. Monitor your symptoms for any changes. Contact your health care provider with any changes. Avoid drinking large amounts of liquid before going to bed or out in public. Avoid or reduce how much caffeine or alcohol you drink. Give yourself time when you urinate. Keep all follow-up visits. This is important. Contact a health care provider if: You have unexplained back pain. Your symptoms do not get better with treatment. You develop side effects from the medicine you are taking. Your urine becomes very dark or has a bad smell. Your lower abdomen becomes distended and you have trouble passing urine. Get help right away if: You have a fever or chills. You suddenly cannot urinate. You feel light-headed or very dizzy, or you faint. There are large amounts of blood or clots in your urine. Your urinary problems become hard to manage. You develop moderate to severe low back or flank pain. The flank is the side of your body between the ribs and the hip. These symptoms may be an emergency. Get help right away. Call 911. Do not wait to see if the symptoms will go away. Do not drive yourself to the hospital. Summary Benign prostatic hyperplasia (BPH) is an enlarged prostate that is caused by the normal aging process. It is not caused by cancer. An enlarged prostate can press on the urethra. This can make it hard to pass urine. This condition is more likely to develop in men older than 50 years. Get help right away if you suddenly cannot urinate. This information is not intended to replace advice given to you by your health care provider. Make sure you discuss any questions you have with your health care provider. Document Revised: 02/15/2022 Document Reviewed: 02/15/2022 [employer] Patient Education 2022 [employer] Follow Up Care 08/17/2023 10:28:34 With:LEONOR LÓPEZ, Stefan Crockett, URL Address: [address] [place] [address]- When: Unknown [facility] 03-14-2024 Note Patient Education Urology Benign Prostatic Hyperplasia Benign prostatic hyperplasia (BPH) is an enlarged prostate gland that is caused by the normal aging process. The prostate may get bigger as a man gets older. The condition is not caused by cancer. The prostate is a walnut-sized gland that is involved in the production of semen. It is located in front of the rectum and below the bladder. The bladder stores urine. The urethra carries stored urine out of the body. An enlarged prostate can press on the urethra. This can make it harder to pass urine. The buildup of urine in the bladder can cause infection. Back pressure and infection may progress to bladder damage and kidney (renal) failure. What are the causes? This condition is part of the normal aging process. However, not all men develop problems from this condition. If the prostate enlarges away from the urethra, urine flow will not be blocked. If it enlarges toward the urethra and compresses it, there will be problems passing urine. What increases the risk? This condition is more likely to develop in men older than 50 years. What are the signs or symptoms? Symptoms of this condition include: ? Getting up often during the night to urinate. ? Needing to urinate frequently during the day. ? Difficulty starting urine flow. ? Decrease in size and strength of your urine stream. ? Leaking (dribbling) after urinating. ? Inability to pass urine. This needs immediate treatment. ? Inability to completely empty your bladder. ? Pain when you pass urine. This is more common if there is also an infection. ? Urinary tract infection (UTI). How is this diagnosed? This condition is diagnosed based on your medical history, a physical exam, and your symptoms. Tests will also be done, such as: ? A post-void bladder scan. This measures any amount of urine that may remain in your bladder after you finish urinating. ? A digital rectal exam. In a rectal exam, your health care provider checks your prostate by putting a lubricated, gloved finger into your rectum to feel the back of your prostate gland. This exam detects the size of your gland and any abnormal lumps or growths. ? An exam of your urine (urinalysis). ? A prostate specific antigen (PSA) screening. This is a blood test used to screen for prostate cancer. ? An ultrasound. This test uses sound waves to electronically produce a picture of your prostate gland. Your health care provider may refer you to a specialist in kidney and prostate diseases (urologist). How is this treated? Once symptoms begin, your health care provider will monitor your condition (active surveillance or watchful waiting). Treatment for this condition will depend on the severity of your condition. Treatment may include: ? Observation and yearly exams. This may be the only treatment needed if your condition and symptoms are mild. ? Medicines to relieve your symptoms, including: ? Medicines to shrink the prostate. ? Medicines to relax the muscle of the prostate. ? Surgery in severe cases. Surgery may include: ? Prostatectomy. In this procedure, the prostate tissue is removed completely through an open incision or with a laparoscope or robotics. ? Transurethral resection of the prostate (TURP). In this procedure, a tool is inserted through the opening at the tip of the penis (urethra). It is used to cut away tissue of the inner core of the prostate. The pieces are removed through the same opening of the penis. This removes the blockage. ? Transurethral incision (TUIP). In this procedure, small cuts are made in the prostate. This lessens the prostate's pressure on the urethra. ? Transurethral microwave thermotherapy (TUMT). This procedure uses microwaves to create heat. The heat destroys and removes a small amount of prostate tissue. ? Transurethral needle ablation (TUNA). This procedure uses radio frequencies to destroy and remove a small amount of prostate tissue. ? Interstitial laser coagulation (ILC). This procedure uses a laser to destroy and remove a small amount of prostate tissue. ? Transurethral electrovaporization (TUVP). This procedure uses electrodes to destroy and remove a small amount of prostate tissue. ? Prostatic urethral lift. This procedure inserts an implant to push the lobes of the prostate away from the urethra. Follow these instructions at home: ? Take [id number] and prescription medicines only as told by your health care provider. ? Monitor your symptoms for any changes. Contact your health care provider with any changes. ? Avoid drinking large amounts of liquid before going to bed or out in public. ? Avoid or reduce how much caffeine or alcohol you drink. ? Give yourself time when you urinate. ? Keep all follow-up visits. This is important. Contact a health care provider if: ? You have unexplained back pain. ? Your symptoms do not get better with treatment. ? You develop side effec (more content not included)... [facility] 09-12-2023 History of Present illness Narrative Patient was in today to discuss hearing aid options for a hearing aid for his right ear. Patient is a candidate for assistance from [employer]. 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 Patient meets with people in person and on the phone. He has difficulty hearing on the phone. Patient also meets with customers on job sites where he has a lot of difficulty hearing. Patient would like to proceed with [employer] and get a [employer] Pure Chg and Go rechargeable hearing aid for the right ear. 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 Patient filled out application for [employer] assistance and was given the contact number. Recommendations to be sent to [employer]. documented in this encounter [facility] 08-07-2023 Evaluation note Encounter Date Diagnosis Assessment Notes Jul, Bronchitis (ICD-10 - J40) Steroid injection given in office. Advised to start medrol pack tomorrow. Discussed SE of steroids. Avoid NSAIDs while on steroid. Viral supportive care as discussed. Tylenol as needed for aches/fever. Supportive care as directed, push fluids/rest, cool mist humidification, nasal saline irrigation/spray . Follow up with PCP if symptoms persist or change, immediate eval for warning s/sx as discussed including worsening SOB/wheezing, difficulty breathing, fevers unresponsive to antipyretic. Patient verbalizes understanding and is agreeable to treatment plan. [facility] Other 01-05-2023 Evaluation note* Encounter Date Diagnosis Assessment Notes Treatment Notes Treatment Clinical Notes Aug, Contact with and (suspected) exposure to other viral communicable diseases (ICD-10 - Z20.828) Aug, Bronchitis (ICD-10 - J40) Take medications as directed. Rest and increase fluid intake. Take meds with food to prevent stomach upset. Use inhaler as needed for coughing spells and SOB. It is better to use inhaler a few times a day over the next 2-3 days. Follow up with primary care provider if symptoms do not improve with treatment plan, although it may take a few weeks for the cough to go away [facility] Other Evaluation + Plan note Future Appointments Appointment Date:06/20/2024 09:45:00 AM Scheduled Provider:Stefan ROMANO MD Location:[facility] Appointment Type:URO Office Visit [facility] evaluation note* Diagnosis Sensorineural hearing loss (SNHL) of left ear with unrestricted hearing of right ear documented in this encounter [facility] Work Phone: evaluation note* Diagnosis Sensorineural hearing loss (SNHL) of both ears- Primary [facility] in this [facility] N[facility] - Reported* Type Description Date Surgical History tonsillectomy Surgical History tendon repair Surgical History colonoscopy Hospitalization History No Hospitalization histo ry information [facility] Other History general Narrative - Reported* Type Description Date Surgical History tonsillectomy Surgical History tendon repair Surgical History colonoscopy Hospitalization History See Above [facility] Other Hospital course Narrative No data available for this section [facility] [employer] progress note No data available for this section [facility] Summary Purpose Family History No Family History Records FoundNo Family History Records FoundNo Family History Records FoundNo Family History Records Found No data available for this section No Family History Records Found Advance Directives No Advanced Directives Records FoundNo Advanced Directives Records FoundNo Advanced Directives Records FoundNo Advanced Directives Records FoundNo Advanced Directives Records Found Reason for Referral Specialty Diagnoses / Procedures Referred By Win wright Referred To Contact Radiology Diagnoses Sensorineural hearing loss (SNHL) of left ear with unrestricted hearing of right ear H90.42 (ICD-10-CM) - Sensorineural hearing loss (SNHL) of left ear with unrestricted hearing of right ear Procedures MRI BRAIN W WO CONTRAST CHG MRI BRAIN BRAIN STEM W/O W/CONTRAST MATERIAL 62375 - CHG MRI BRAIN BRAIN STEM W/O W/CONTRAST MATERIAL Katherine Long Jr. [address] [place] [address] [address] [place] [address] Referral ID Status Reason Start Date Expiration Date Visits Re quested Visits Authorized [id number] Closed 12/03/2022 12/03/2023 1 1 Additional Source Comments REASON FOR VISIT (unrecogniz ed section and content) Specialty Diagnoses / Procedures Referred By Win wright Referred To Contact Radiology Diagnoses Sensorineural hearing loss (SNHL) of left ear with unrestricted hearing of right ear H90.42 (ICD-10-CM) - Sensorineural hearing loss (SNHL) of left ear with unrestricted hearing of right ear Procedures MRI BRAIN W WO CONTRAST CHG MRI BRAIN BRAIN STEM W/O W/CONTRAST MATERIAL 85578 - CHG MRI BRAIN BRAIN STEM W/O W/CONTRAST MATERIAL Katherine Long [address] [place] [address] Referral ID Status Reason Start Date Expiration Date Visits Re quested Visits Authorized [id number] Closed 12/03/2022 12/03/2023 1 1 Reason Comments Hearing Aid Discussion (unrecognized sect ion and content) No Status Records FoundNo Status Records FoundNo Status Records FoundNo Status Records FoundNo Status Records Found INFORMATION SOURCE (unrecogn ized section and content) DATE CREATED AUTHOR 12/03/2022 [facility] DATE CREATED AUTHOR AUTHOR'S ORGANIZ ATION [facility] DATE CREATED AUTHOR AUTHOR'S ORGANIZ ATION 06/01/2023 [facility] DATE CREATED AUTHOR AUTHOR'S ORGANIZ ATION 11/15/2023 [facility] EPIC DATE CREATED AUTHOR AUTHOR'S ORGANIZ ATION 03/16/2024 [facility] Care Teams (unrecognized sec tion and content) Sonoscope Operator Relationship Specialty Start Date End Date Ru Goodson MD [address] [place] [address] [phone] PCP - General Family Medicine 12/05/22 FOR RECORDS PERTAINING TO PATIENTS WHO ARE OR HAVE BEEN ENROLLED IN A CHEMICAL DEPENDENCY/SUBSTANCEABUSE PROGRAM, SOME INFORMATION MAY BE OMITTED. This clinical summary was aggregated from multiple sources. Caution should be exercised in using it in the provision of clinical care. This summary normalizes information from multiple sources, and as a consequence, information in this document may materially change the coding, format and clinical context of patient data. In addition, data may be omitted in some cases. CLINICAL DECISIONS SHOULD BE BASED ON THE PRIMARY CLINICAL RECORDS. [employer] provides no warranty or guarantee of the accuracy or completeness of information in this document.
--- NOTE | 2024-03-18 08:55 | XR_ITS ---
The [address] [address] Patient Name: LEWIS AVERY MRN: [id number] date: 1965 Sex: M Assigned Patient Location: US Current Patient Location: US Accession/Order Number: [id number] Exam Date: 03/18/2024 09:22 Report Date: 03/19/2024 06:23 At the request of: CALDERON GALVEZ Procedure: XR abdomen 1V EXAMINATION: XR abdomen 1V HISTORY: History OF Kidney Stones COMPARISON: Ultrasound renal bilateral 03/18/2024 FINDINGS: KIDNEY/URETER - RIGHT: No visible renal or ureteral calcifications. KIDNEY/URETER - LEFT: No visible renal or ureteral calcifications. PELVIS: Bilateral pelvic calcifications; nonspecific but suspected represent phleboliths. BOWEL: No abnormal dilation or deviation. BONES: No acute abnormality. OTHER: Negative. No abnormal gaseous collections. XR/XR abdomen 1V IMPRESSION: 1. No appreciable urinary tract calculi. 2. Nonspecific pelvic calcifications but I suspect these represent phleboliths. No hydronephrosis on ultrasound of kidneys performed on same day. Electronically authenticated by: SYED VITAL Date: 03/19/2024 06:23
--- NOTE | 2024-03-18 08:56 | US_ITS ---
The [address] [address] Patient Name: LEWIS AVERY MRN: [id number] date: 1965 Sex: M Assigned Patient Location: Current Patient Location: Accession/Order Number: [id number] Exam Date: 03/18/2024 09:00 Report Date: 03/19/2024 06:22 At the request of: CALDERON GALVEZ Procedure: US renal BI EXAMINATION: US renal BI HISTORY: History Kidney Stones COMPARISON: No relevant comparison available. TECHNIQUE: Ultrasound examination was performed of the kidneys and urinary bladder. FINDINGS: RIGHT KIDNEY: No evidence of pelvocaliectasis, mass, or calculi. Normal parenchymal echogenicity. Color Doppler demonstrates blood flow within the kidney. Kidney: 10.9 x 6.60 7.2 cm LEFT KIDNEY: No evidence of pelvocaliectasis, mass, or calculi. Normal parenchymal echogenicity. Color Doppler demonstrates blood flow within the kidney. Kidney: 11.4 x 6.2 x 6.9 cm BLADDER: No visible wall thickening, mass, or calculi. US/US renal BI IMPRESSION: 1. No hydronephrosis, appreciable mass, or nephrolithiasis. 2. Evaluation is limited by patient body habitus. Electronically authenticated by: SYED VITAL Date: 03/19/2024 06:22
== END 2024-03-18 08:50 | disposition home or self-care (01) ==
LOC: US 08:49
PROVIDERS: PCP Family Medicine; Visit Provider Urology
DX: N18.2 Chronic kidney disease, stage 2 (mild) (principal); Z87.442 Personal history of urinary calculi
CPT/HCPCS: 36415; 74018; 76775; 80053

== ENCOUNTER 2024-03-18 09:25 | Outpatient (OUT) | payer OTHER, SELFPAY ==
--- OUTSIDE RECORDS SUMMARY | 2024-03-18 09:29 | XMS_ITS | CCD ---
Author Organization [facility] Inform ion Partnership [facility] Care Team Providers Care Labor Contract Analyst Name Role Phone Jud Farfan Unavailable DR KATHERINE LONG Consulting Unavailable KELLEE, DR RU Dill Primary Care Unavailable DR KATHERINE LONG Attending Unavailable MERCEDES, DR TOUSSAINT Admitting Unavailable KATHERINE LONG JR Referring Unavailable RU GOODSON Primary Care Unavailable Ru Goodson MD Primary Care Provider [phone] Alexandra Burdick Unavailable Unavailable Primary Care Provider [facility] Ty Primary Care Physician [phone] Stefan ROMANO Attending Unavailable Stefan ROMANO Attending Unavailable Allergies Allergy Classification Reported Allergen(s) Allergy Type Date of Onset Reaction(s) Facility (1 source) No Known Medication Allergies; Translations: [No Known Medication Allergies] Propensity to adverse reactions (disorder) [facility] Repository Medications Current Medications Medication Drug Class(es) Dates Sig (Normalized) Sig (Original) [id number] 200 actuat albuterol 0.09 mg/actuat metered dose [...] Daily, # 30 cap(s), Refills(s) 11, Pharmacy: [facility], 179, cm, 03/14/24 9:13:00 EDT, Height/Length [...] for 14 day(s), 28 tab(s), Refill(s) 0, [facility], 179, cm, 03/14/24 9:13:00 EDT, Height/Length Dosing, 177, kg, 03/14/24 9:13:00 EDT, Weight Dosing Start Date: 03/14/24 Stop Date: 03/28/24 Status: Ordered tamsulosin hydrochloride 0.4 mg oral capsule (1 source) alpha-Adrenergic Sergey Start: 03-14-2024 take 1 capsule by mouth once daily tamsulosin 0.4 mg Cap 0.4 mg = 1 cap(s), Oral, Daily, # 30 cap(s), Refills(s) 11, Pharmacy: [facility], 179, cm, 03/14/24 9:13:00 EDT, Height/Length [...] Stefan ROMANO MD Where: [facility] [address] [address]- You Need to Schedule the Following Appointments Follow Up with Stefan ROMANO MD, URL When: Where: [address] [place] [address]- Medications What How Much When Instructions New dutasteride (dutasteride 0.5 mg Cap) 1 Capsules By Mouth Every day Refills: 11 Pickup at [facility] New sulfamethoxazole-trim ethoprim (Bactrim D.S. 800 mg-160 mg Tab) 1 Tablets By Mouth 2 times a day Duration: 14 Days Pickup at [facility] New tamsulosin (tamsulosin 0.4 mg Cap) 1 Capsules By Mouth Every day Refills: 11 Pickup at [facility] Pharmacy Information [facility]: [address] [place], [place] [id number] [phone] Allergies No Known Medication Allergies Problems Ongoing [...] a (more content not included)... Normal [facility] Urology Office/Clinic Noteon 03-14-2024 Urology Office/Clinic Note [...] possible SE. Also discussed starting a prostate link cutter to work along with alpha-sergey. Pt agrees [...] Information LEONOR LÓPEZ, Stefan Crockett, URL [address] [place] [address]- Additional Instructions: 3 mos w/ PVR Patient Education Benign Prostatic Hyperplasia I, Maureen Dumont, personally scribed for Dr. Romano on 03/14/2024 10:03:00. . Documentation recorded by the scribe, Maureen Dumont, accurately reflects the services(s) I performed and decisions made by me. Authenticated by Dr. Romano on 03/14/2024 10:10:00. Problem List/Past Medical History Ongoing BPH with urinary (more content not included)... Normal [facility] Comment on above: Result Comment: Elec tronically Signed By: Stefan ROMANO MD\.br\Date and Time Signed: 03/14/24 10:10 EDT\.br\Electronically Co-Signed By: Maureen Dumont\.br\Date and Time Co-Signed: 03/14/24 10:03 EDT CBC WITH DIFFon 05-30-2023 ABS BASOPHIL 0.02 x10^3ul Normal (0.00 - 0.16) [facility] Comment on above: Order Comment: [facility]IL [facility] [id number] Performed By: #### C BC/D, CHEM-C, LIPID, TSHT34, B12+, PSA-S #### [facility] [address] [facility], [address] ABS EOSINOPHIL 0.15 x10^3ul Normal (0.00 - 0.40) [facility] Comment on above: Order Comment: [facility]IL [facility] [id number] Performed By: #### C BC/D, CHEM-C, LIPID, TSHT34, B12+, PSA-S #### [facility] [address] [facility], [address] ABS IMMATURE GRANS 0.02 x10^3ul Normal (0.00 - 0.11) [facility] Comment on above: Order Comment: [facility]IL ITY[facility] [id number] Performed By: #### C BC/D, CHEM-C, LIPID, TSHT34, B12+, PSA-S #### [facility] [address] [facility], [address] ABS LYMPHOCYTE 1.44 x10^3ul Normal (0.96 - 5.40) [facility] Comment on above: Order Comment: [facility]IL [facility] [id number] Performed By: #### C BC/D, CHEM-C, LIPID, TSHT34, B12+, PSA-S #### [facility] [address] [facility], [address] ABS MONOCYTE 0.50 x10^3ul Normal (0.10 - 1.00) [facility] Comment on above: Order Comment: [facility]IL [facility] [id number] Performed By: #### C BC/D, CHEM-C, LIPID, TSHT34, B12+, PSA-S #### [facility] [address] [facility], [address] ABS NEUTROPHIL 3.06 x10^3ul Normal (1.50 - 7.00) [facility] Comment on above: Order Comment: [facility]IL [facility] [id number] Performed By: #### C BC/D, CHEM-C, LIPID, TSHT34, B12+, PSA-S #### [facility] [address] [place], [address] Basophils/100 WBC (Bld) 0.4 % Normal () [facility] on above: Order Comment: [facility] [id number] Performed By: #### C BC/D, CHEM-C, LIPID, TSHT34, B12+, PSA-S #### [facility] [address] [place], [address] Eosinophils/100 WBC (Bld) 2.9 % Normal () [facility] Comment on above: Order Comment: [facility] [id number] Performed By: #### C BC/D, CHEM-C, LIPID, TSHT34, B12+, PSA-S #### [facility] [address] [facility], [address] Hematocrit (Bld) [Volume fraction] 44.7 % Normal (42.0 - 52.0) [facility] Comment on above: Order Comment: [facility] [id number] Performed By: #### C BC/D, CHEM-C, LIPID, TSHT34, B12+, PSA-S #### [facility] [address] [place], [address] Hemoglobin (Bld) [Mass/Vol] 14.7 g/dL Normal (14.0 - 18.0) [facility] Comment on above: Order Comment: [facility] [id number] Performed By: #### C BC/D, CHEM-C, LIPID, TSHT34, B12+, PSA-S #### [facility] [address] [place], [address] IMMATURE GRANS (IG) 0.4 % Normal () [facility] above: Order Comment: [facility] [id number] Performed By: #### C BC/D, CHEM-C, LIPID, TSHT34, B12+, PSA-S #### [facility] [address] [place], [address] LYMPS 27.7 % Normal () [facility] Comment on above: Order Comment: [facility] [id number] Performed By: #### C BC/D, CHEM-C, LIPID, TSHT34, B12+, PSA-S #### [facility] [address] [place], [address] MCH (RBC) [Entitic mass] 32.0 pg Normal (27.0 - 33.0) [facility] Comment on above: Order Comment: [facility] [id number] Performed By: #### C BC/D, CHEM-C, LIPID, TSHT34, B12+, PSA-S #### [facility] [address] [place], [address] MCHC (RBC) [Mass/Vol] 32.9 g/dL Normal (30.0 - 37.0) [facility] Comment on above: Order Comment: [facility]IL [facility] [id number] Performed By: #### C BC/D, CHEM-C, LIPID, TSHT34, B12+, PSA-S #### [facility] [address] [place], [address] MCV (RBC) [Entitic vol] 97.4 fL High (80.0 - 94.0) [facility] Comment on above: Order Comment: [facility] [id number] Performed By: #### C BC/D, CHEM-C, LIPID, TSHT34, B12+, PSA-S #### [facility] [address] [place], [address] MONOS 9.6 % Normal () [facility] Comment on above: Order Comment: [facility] [id number] Performed By: #### C BC/D, CHEM-C, LIPID, TSHT34, B12+, PSA-S #### [facility] [address] [place], [address] PLT 194 x10^3ul Normal (130 - 400) [facility] Comment on above: Order Comment: [facility]IL [facility] [id number] Performed By: #### C BC/D, CHEM-C, LIPID, TSHT34, B12+, PSA-S #### [facility] [address] [place], [address] RBC 4.59 x10^6ul Low (4.70 - 6.10) [facility] Comment on above: Order Comment: [facility] [id number] Performed By: #### C BC/D, CHEM-C, LIPID, TSHT34, B12+, PSA-S #### [facility] [address] [place], [address] RDW-SD 46.5 fl Normal (37.0 - 49.0) [facility] Comment on above: Order Comment: [facility] [id number] Performed By: #### C BC/D, CHEM-C, LIPID, TSHT34, B12+, PSA-S #### [facility] [address] [place], [address] SEGS 59.0 % Normal () [facility] Comment on above: Order Comment: [facility]IL [facility] [id number] Performed By: #### C BC/D, CHEM-C, LIPID, TSHT34, B12+, PSA-S #### [facility] [address] [place], [address] WBC 5.19 x10^3ul Normal (3.80 - 10.60) [facility] Comment on above: Order Comment: [facility] [id number] Performed By: #### C BC/D, CHEM-C, LIPID, TSHT34, B12+, PSA-S #### [facility] [address] [place], [address] COMP METABOLIC PANEL W/GFRon 05-30-2023 Albumin [Mass/Vol] 4.5 g/dL Normal (3.5 - 5.0) [facility] Comment on above: Performed By: #### C BC/D, CHEM-C, LIPID, TSHT34, B12+, PSA-S #### [facility] [address] [place], [address] ALK PHOS 65 U/L Normal (38 - 126) [facility] Comment on above: Performed By: #### C BC/D, CHEM-C, LIPID, TSHT34, B12+, PSA-S #### [facility] [address] [place], [address] ALT [Catalytic activity/Vol] 57 U/L High (1 - 45) [facility] Comment on above: Performed By: #### C BC/D, CHEM-C, LIPID, TSHT34, B12+, PSA-S #### [facility] [address] [place], [address] AST [Catalytic activity/Vol] 31 U/L Normal (15 - 46) [facility] Comment on above: Performed By: #### C BC/D, CHEM-C, LIPID, TSHT34, B12+, PSA-S #### [facility] [address] [place], [address] Bilirubin [Mass/Vol] 0.7 mg/dL Normal (0.2 - 1.3) [facility] Comment on above: Performed By: #### C BC/D, CHEM-C, LIPID, TSHT34, B12+, PSA-S #### [facility] [address] [place], [address] Calcium [Mass/Vol] 9.5 mg/dL Normal (8.6 - 10.6) [facility] Comment on above: Performed By: #### C BC/D, CHEM-C, LIPID, TSHT34, B12+, PSA-S #### [facility] [address] [place], [address] Chloride [Moles/Vol] 106 mmol/L Normal (98 - 107) [facility] Comment on above: Performed By: #### C BC/D, CHEM-C, LIPID, TSHT34, B12+, PSA-S #### [facility] [address] [place], [address] CO2 [Moles/Vol] 26 mmol/L Normal (22 - 30) [facility] Comment on above: Performed By: #### C BC/D, CHEM-C, LIPID, TSHT34, B12+, PSA-S #### [facility] [address] [place], [address] Creatinine [Mass/Vol] 1.01 mg/dL Normal (0.66 - 1.25) [facility] Comment on above: Performed By: #### C BC/D, CHEM-C, LIPID, TSHT34, B12+, PSA-S #### [facility] [address] [place], [address] GFR- AMER 91.5 ML/M1.7 Normal (60.0 - 161.8) [facility] Comment on above: Performed By: #### C BC/D, CHEM-C, LIPID, TSHT34, B12+, PSA-S #### [facility] [address] [place], [address] GFR-NON AFRIC-AMER 75.6 ML/M1.7 Normal (60.0 - 133.8) [facility] Comment on above: Performed By: #### C BC/D, CHEM-C, LIPID, TSHT34, B12+, PSA-S #### [place] [facility] [address] [place], [address] Glucose [Mass/Vol] 94 mg/dL Normal (74 - 106) [facility] Comment on above: Performed By: #### C BC/D, CHEM-C, LIPID, TSHT34, B12+, PSA-S #### [place] [facility] [address] [place], [address] Potassium [Moles/Vol] 5.0 mmol/L Normal (3.5 - 5.1) [facility] Comment on above: Performed By: #### C BC/D, CHEM-C, LIPID, TSHT34, B12+, PSA-S #### [facility] [address] [place], [address] Protein [Mass/Vol] 7.2 g/dL Normal (6.3 - 8.2) [facility] Comment on above: Performed By: #### C BC/D, CHEM-C, LIPID, TSHT34, B12+, PSA-S #### [facility] [address] [place], [address] Sodium [Moles/Vol] 142 mmol/L Normal (137 - 145) [facility] Comment on above: Performed By: #### C BC/D, CHEM-C, LIPID, TSHT34, B12+, PSA-S #### [facility] [address] [place], [address] Urea nitrogen [Mass/Vol] 12 mg/dL Normal (9 - 20) [facility] Comment on above: Performed By: #### C BC/D, CHEM-C, LIPID, TSHT34, B12+, PSA-S #### [place] [facility] [address] [place], [address] LIPID PROFILEon 05-30-2023 CHOL-HDL RATIO 7.2 High [...] CHEM-C, LIPID, TSHT34, B12+, PSA-S #### [place] [facility] [address] [facility], [address] Cholesterol [Mass/Vol] 246 mg/dL High (120 - 200) [facility] Comment on above: Performed By: #### C BC/D, CHEM-C, LIPID, TSHT34, B12+, PSA-S #### [facility] [address] [place], [address] Cholesterol in HDL [Mass/Vol] 34 mg/dL Low (40.0 - 60.0) [facility] Comment on above: Performed By: #### C BC/D, CHEM-C, LIPID, TSHT34, B12+, PSA-S #### [facility] [address] [place], [address] Cholesterol in LDL [Mass/Vol] 160 mg/dL High (0 - 130) [facility] Comment on above: Performed By: #### C BC/D, CHEM-C, LIPID, TSHT34, B12+, PSA-S #### [facility] [address] [facility], [address] Cholesterol in VLDL [Mass/Vol] 52 mg/dL High (7 - 46) [facility] Comment on above: Performed By: #### C BC/D, CHEM-C, LIPID, TSHT34, B12+, PSA-S #### [facility] [address] [facility], [address] Triglyceride [Mass/Vol] 259 mg/dL High (30 - 150) [facility] Comment on above: Performed By: #### C BC/D, CHEM-C, LIPID, TSHT34, B12+, PSA-S #### [facility] [address] [facility], [address] PSAon 05-30-2023 PROSTATE SP AG 2.33 NG/ML Normal (0.00 - 4.00) [facility] Comment on above: Result Comment: PSA performed on [employer] 5600. An immunometric equimolar test technique. PSA Min. Detection = 0.06 NG/ML. Patient results determined by assays using different manufactures and/or methods may not be comparable. Performed By: #### C BC/D, CHEM-C, LIPID, TSHT34, B12+, PSA-S #### [facility] [address] [facility], [address] T3 FREE, T4 FREE AND TSHon 1 Free T3 [Mass/Vol] 4.62 pg/mL Normal (2.71 - 6.16) [facility] Comment on above: Performed By: #### C BC/D, CHEM-C, LIPID, TSHT34, B12+, PSA-S #### [facility] [address] [facility], [address] Free T4 [Mass/Vol] 1.23 ng/dL Normal (0.64 - 1.79) [facility] Comment on above: Performed By: #### C BC/D, CHEM-C, LIPID, TSHT34, B12+, PSA-S #### [facility] [address] [facility], [address] TSH Qn 1.47 m[IU]/L Normal (0.470 - 4.680) [facility] Comment on above: Performed By: #### C BC/D, CHEM-C, LIPID, TSHT34, B12+, PSA-S #### [facility] [address] [facility], [address] VIT B12 AND FOLATEon 023 Cobalamin (Vitamin B12) [Mass/Vol] 297 pg/mL Normal (239 - 931) [facility] Comment on above: Performed By: #### C BC/D, CHEM-C, LIPID, TSHT34, B12+, PSA-S #### [facility] [address] [facility], [address] FOLIC ACID 5.7 NG/ML Normal (2.8 - 20.0) [facility] Comment on above: Performed By: #### C BC/D, CHEM-C, LIPID, TSHT34, B12+, PSA-S #### [facility] [address] [facility], [address] MRI BRAIN W WO CONTRASTon MRI BRAIN [...] Jeremiah Love MD 12/07/22 Final result Normal [facility] 1. No acute intracranial abnormality. No acute infarct. 2. No abnormality seen within the cerebellar pontine angle cisterns or internal auditory canals. 3. 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 4. Mild global parenchymal volume loss with minimal chronic microvascular ischemic changes. [facility] EXAMINATION: MRI OF THE BRAIN WITHOUT [...] The soft tissues demonstrate no acute abnormality. [facility] Jeremiah Love MD - 12/07/2022 EXAMINATION: [...] loss with minimal chronic microvascular ischemic changes. [employer] Phone: Radiology Study observation (narrative) [employer] [facility] Phone: MRI BRAIN W WO CONTRASTOrder ed By: Jeremiah Love on 12-07-2022 [facility] Phone: COVID/FLU/RSV RT-PCRon 08-17 SARS-CoV-2 (COVID-19) RNA FER+probe Ql (Unsp spec) Negative [facility] [email or web address] Other COVID/FLU/RSV RT-PCR Negative [facility] [email or web address] Other Vital Signs Date Time Vital Sign Value Performing Clinician Facility 03-14-2024 09:07-0400 Blood Pressure Location Stefan ROMANO [facility] 03-14-2024 09:07-0400 Diastolic blood pressure 78 mm[Hg] Stefan ROMANO [facility] 03-14-2024 09:07-0400 Heart rate 72 /min Stefan ROMANO [facility] 03-14-2024 09:07-0400 Respiratory rate 16 /min Stefan ROMANO [facility] 03-14-2024 09:07-0400 Systolic blood pressure 132 mm[Hg] Stefan ROMANO [facility] 08-07-2023 18:05-0500 Body height 177.8 cm Alexandra Burdick Other [facility] Other 08-07-2023 18:05-0500 Body mass index (BMI) [Ratio] 56.9 kg/m2 Alexandra Burdick Other [facility] Other 08-07-2023 18:05-0500 Body temperature 98.5 [degF] Alexandra Burdick Other [facility] Other 08-07-2023 18:05-0500 Body weight 179.9 kg Alexandra Burdick Other [facility] Other 08-07-2023 18:05-0500 Respiratory rate 18 /min Alexandra Burdick Other [facility] Other 08-07-2023 18:05-0500 SaO2% (BldA) [Mass fraction] 95 % Alexandra Burdick Other [facility] Other 08-17-2022 11:00-0500 Body height 177.8 cm Jud Adolph Other [facility] Other 08-17-2022 11:00-0500 Body mass index (BMI) [Ratio] 51.22 kg/m2 Jud Farfan Other [facility] Other 08-17-2022 11:00-0500 Body temperature 97.3 [degF] Jud Farfan Other [facility] Other 08-17-2022 11:00-0500 Body weight 161.94 kg Jud Farfan Other [facility] Other 08-17-2022 11:00-0500 Respiratory rate 18 /min Jud Farfan Other [facility] Other 08-17-2022 11:00-0500 SaO2% (BldA) [Mass fraction] 92 % Jud Farfan Other [facility] Other Encounters Encounter Date Encounter Type Care Provider Facility Start: 06-20-2024 ambulatory Stefan ROMANO Facili ty:[facility] [place] Start: 03-14-2024 End: 03-14-2024 ambulatory Stefan ROMANO Facility:[facility] Start: 03-14-2024 End: 03-14-2024 Patient encounter procedure [facility] Start: 11-14-2023 End: 11-14-2023 ambulatory Not [...] 08-07-2023 End: 08-07-2023 ambulatory Alexandra Burdick Other [facility] Other Start: 08-07-2023 Office outpatient vi sit 15 minutes Alexandra Burdick [facility] [place] Start: 12-07-2022 End: 12-10-2022 ambulatory KATHERINE LONG [facility] Start: 12-07-2022 End: 12-09-2022 Subsequent hospital visit by physician Mike Meehan Mri Room [address] [facility] MRI Comment on above: Sensorineural hearin g loss (SNHL) of left ear with unrestricted hearing of right ear Start: 11-28-2022 End: 11-29-[address] KATHERINE LONG Facility:[facility] Start: 08-17-2022 End: 08-17-2022 ambulatory Jud Farfan Other [place] [place] [employer] Other Start: 08-17-2022 Office outpatient vi sit 15 minutes Jud Farfan [facility] [place] Procedures Date Procedure Procedure Detail Performing Clinician Start: 12-07-2022 Mri brain brain stem w/o w/contrast material Katherine Long Work Phone: Start: 08-13-1998 Lithotripsy Stefan LANDRY Plan of Treatment Date Care Activity Detail Author Start: 03-13-2023 Influenza vaccination Flu vacc ine (Season Ended) [facility] Start: 11-07-2013 Shingles vaccine (1 of 2) Shingles vaccine (1 of 2) [facility] Start: 11-07-2008 Screening for malign ant neoplasm of colon [facility] Start: 2003 Lipid panel Lipids [facility] Start: 11-07-1982 DTaP/Tdap/Td vaccine (1 - Tdap) DTaP/Tdap/Td vaccine (1 - Tdap) [facility] Start: 11-07-1981 Hepatitis C screening Hepatitis C sc reen [facility] Start: 11-07-1978 HIV screening HIV screen [facility] Start: 1975 Depression Screen Depression Screen [facility] Start: 05-10-1964 COVID-19 Vaccine (#1) COVID-19 Vacci ne (#1) [facility] Payers Date Payer Category Payer Unknown [id number] 2023 Unknown [facility] [place] [id number] 2023-Present [phone] [place] [id number] 2022 Unknown [id number] 1965 Unknown [id number] 3 1963 Unknown [id number] 2 1963 Unknown [id number] 59 1963 Unknown [id number] 59 1963 Unknown [id number] 59 1963 Unknown [id number] 7 1963 Unknown [id number] 7 Social History Date Type Detail Facility Unknown if ever smoked [facility] Other Sex Assigned At [facility] Tobacco smoking status ARIS Tobacco smoking consumption unknown [facility] [employer] Phone: Start: 1965 Sex Assigned At Not on file [facility] [employer] Phone: Start: 03-14-2024 Tobacco smoking status Never smoked tobacco (finding) [facility] Tobacco smoking status Never [facility] Functional Status Date Assessment Result Facility 03-14-2024 Functional Status N/A [facility] Clinical Notes 08-17-2022 to 03-14-2024 Edie [...] urethra. Follow these instructions at home: Take kbht-poj-tilella and prescription medicines only as told by [...] provider. Document Revised: 02/15/2022 Document Reviewed: 02/15/2022 [employer] Patient Education 2022 [employer]. Follow Up Care 08/17/2023 10:28:34 With:LEONOR LÓPEZ, Stefan Crockett, URL Address: [address] [place] [address]- When: Unknown [facility] 03-14-2024 Note Patient Education Urology Benign [...] Follow these instructions at home: ? Take zwxz-lam-ewhshwo and prescription medicines only as told by [...] develop side effec (more content not included)... [facility] 09-12-2023 History of Present illness Narrative Patient was in today to discuss hearing aid options for a hearing aid for his right ear. Patient is a candidate for assistance from [employer]. 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 Patient meets with people in person and on the phone. He has difficulty hearing on the phone. Patient also meets with customers on job sites where he has a lot of difficulty hearing. Patient would like to proceed with [employer] and get a [employer] Pure Chg and Go rechargeable hearing aid for the right ear. 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 Patient filled out application for [employer] assistance and was given the contact number. Recommendations to be sent to [facility]. documented in this encounter [facility] 08-07-2023 Evaluation note Encounter Date Diagnosis Assessment [...] understanding and is agreeable to treatment plan. [employer] Other 01-05-2023 Evaluation note* Encounter Date Diagnosis [...] weeks for the cough to go away [employer] Other Evaluation + Plan note Future Appointments Appointment Date:06/20/2024 09:45:00 AM Scheduled Provider:Stefan ROMANO MD Location:[facility] Appointment Type:URO Office Visit [facility] evaluation note* Diagnosis Sensorineural hearing loss (SNHL) of left ear with unrestricted hearing of right ear [facility] Work Phone: evaluation note* Diagnosis Sensorineural hearing loss (SNHL) of both ears- Primary [facility] - [facility]* Type Description Date Surgical History tonsillectomy Surgical History tendon repair Surgical History colonoscopy Hospitalization History No Hospitalization histo ry information [facility] Other History general Narrative - Reported* Type Description Date Surgical History tonsillectomy Surgical History tendon repair Surgical History colonoscopy Hospitalization History See Above [facility] Other Hospital course Narrative No data available for this section [facility] [place] progress note No data available for this section [facility] Summary Purpose Family History No Family History [...] MRI BRAIN BRAIN STEM W/O W/CONTRAST MATERIAL 02382 - CHG MRI BRAIN BRAIN STEM W/O W/CONTRAST MATERIAL Katherine Long Jr. [address] [place] [address] [address] [place] [address] Referral ID Status Reason Start Date Expiration Date Visits Re quested Visits Authorized [id number] Closed 12/03/2022 12/03/2023 1 1 Additional Source [...] MRI BRAIN BRAIN STEM W/O W/CONTRAST MATERIAL 95389 - CHG MRI BRAIN BRAIN STEM W/O W/CONTRAST MATERIAL Katherine Long [address] [place] [address] Referral ID Status Reason Start Date Expiration Date Visits Re quested Visits Authorized [id number] Closed 12/03/2022 12/03/2023 1 1 Reason Comments Hearing Aid Discussion (unrecognized sect ion and content) No Status Records FoundNo Status Records FoundNo Status Records FoundNo Status Records FoundNo Status Records Found INFORMATION SOURCE (unrecogn ized section and content) DATE CREATED AUTHOR 12/03/2022 [facility] DATE CREATED AUTHOR AUTHOR'S ORGANIZ ATION 12/09/2022 [facility] DATE CREATED AUTHOR AUTHOR'S ORGANIZ ATION 06/01/2023 [facility] DATE CREATED AUTHOR AUTHOR'S ORGANIZ ATION 11/15/2023 [facility] EPIC DATE CREATED AUTHOR AUTHOR'S ORGANIZ ATION 03/16/2024 [facility] Care Teams (unrecognized sec tion and content) Labor Contract Analyst Relationship Specialty Start Date End Date Ru Goodson MD [address] [place] [address] [id number] PCP - General Family Medicine 12/05/22 FOR [...] BE BASED ON THE PRIMARY CLINICAL RECORDS. [employer] provides no warranty or guarantee of the accuracy or completeness of information in this document.
[2024-03-18 10:23] LABS: Alanine Aminotransferase 55 U/L (16-63); Albumin Level 3.6 g/dL (3.4-5.0); Alkaline Phosphatase 65 U/L (46-116); Anion Gap 15.2; Aspartate Amino Transferase 24 U/L (15-37); Bilirubin Total 0.4 mg/dL (0.2-1.0); Carbon Dioxide 26.5 mmol/L (21.0-32.0); Chloride 104 mmol/L (98-107); Estimated GFR (African America >60 (>=60); Estimated GFR (Non-African Ame >60 (>=60); Globulin 3.6 g/dL; Glucose 92 mg/dL (74-106); Potassium 3.7 mmol/L (3.5-5.1); Sodium 142 mmol/L (136-145); Total Protein 7.2 g/dL (6.4-8.2)
== END 2024-03-18 09:26 | disposition home or self-care (01) ==
LOC: LAB 09:25
PROVIDERS: PCP Family Medicine; Visit Provider Family Medicine
DX: N18.2 Chronic kidney disease, stage 2 (mild) (principal)
CPT/HCPCS: 36415; 80053

== ENCOUNTER 2024-07-22 15:03 | Outpatient (OUT) | payer OTHER, SELFPAY | END 2024-07-22 15:04 | disposition home or self-care (01) | LOC: PST 15:03 | PROVIDERS: PCP Family Medicine; Visit Provider Urology | DX: Z01.818 Encounter for other preprocedural examination (principal); N40.1 Benign prostatic hyperplasia with lower urinary tract symptoms ==

== ENCOUNTER 2024-07-28 07:31 | Day surgery (SDC) | payer OTHER, SELFPAY ==
--- OUTSIDE RECORDS SUMMARY | 2024-07-28 07:35 | XMS_ITS | CCD ---
Author Organization [facility] Team Providers Care Hospitalist Name Role Phone Jud Farfan Unavailable DR KATHERINE LONG Consulting Unavailable KELLEE, DR RU Dill Primary Care Unavailable DR KATHERINE LONG Attending Unavailable MERCEDES, DR TOUSSAINT Admitting Unavailable KATHERINE LONG JR Referring Unavailable RU GOODSON Primary Care Unavailable Ru Goodson MD Primary Care Provider Alexandra Burdick Unavailable Unavailable Primary Care Provider UnavailRU Lopez Primary Care Physician Stefan ROMANO Attending Unavailable Stefan ROMANO Attending Unavailable Stefan ROMANO Attending Unavailable Allergies Allergy Classification Reported Allergen(s) Allergy Type Date of Onset Reaction(s) Facility (1 source) No Known Medication Allergies; Translations: [No Known Medication Allergies] Propensity to adverse reactions (disorder) [facility] Repository Medications Current Medications Medication Drug Class(es) Dates Sig (Normalized) Sig (Original) [id number] 200 actuat albuterol 0.09 mg/actuat metered dose [...] Aug, Not-Taking/PRN dutasteride 0.5 mg oral capsule (2 sources) 5-alpha Reductase Inhibitor Start: 03-14-2024 take 1 capsule by mouth once daily dutasteride 0.5 mg Cap 0.5 mg = 1 cap(s), Oral, Daily, # 30 cap(s), Refills(s) 11, Pharmacy: [facility], 179, cm, 03/14/24 9:13:00 EDT, Height/Length [...] for 14 day(s), 28 tab(s), Refill(s) 0, [facility], 179, cm, 03/14/24 9:13:00 EDT, Height/Length Dosing, 177, kg, 03/14/24 9:13:00 EDT, Weight Dosing Start Date: 03/14/24 Stop Date: 03/28/24 Status: Ordered tamsulosin hydrochloride 0.4 mg oral capsule (2 sources) alpha-Adrenergic Sergey Start: 03-14-2024 take 1 capsule by mouth once daily tamsulosin 0.4 mg Cap 0.4 mg = 1 cap(s), Oral, Daily, # 30 cap(s), Refills(s) 11, Pharmacy: [facility], 179, cm, 03/14/24 9:13:00 EDT, Height/Length [...] a day for 5 day(s) Aug, Not-Taking/PRN cephalexin 500 mg oral capsule (1 source) Cephalosporin Antibacterial Start: 06-20-2024 Keflex 500 mg Cap 500 mg = 1 cap(s), Oral, As Directed, Pt to take 1 tab the day before procedure and the 2nd tab the day of procedure once completed., # 2 cap(s), Refills(s) 0, Pharmacy: [facility], 179, cm, 06/20/24 10:11:00 EST, Height/Length Dosing, 181.3, kg, 06/20/24 10:11:00 EST, Weight Dosing Start Date: 06/20/24 Status: Ordered Dexamethasone (2 sources) Corticosteroid Start: 09-07-2020 DEXAMETHASONE Aug, 4 mg gadoteridol (PROHANCE) injection 20 mL (1 source) Start: 12-07-2022 End: 12-07-2022 gadoteridol (PROHANCE) injection 20 mL triamcinolone acetonide 40 mg/ml injectable suspension (3 sources) Corticosteroid Start: 08-17-2022 Kenalog-40 Jul, 40 mg Problems Problem Classification Problem Date Documented Date Episodic/Chronic Calculus of urinary tract (4 sources) History of calculus of kidney; Translations: [Personal history of urinary calculi] Onset: 03-14-2024 Episodic Chronic kidney disease (2 sources) Chronic kidney disease stage 2 03-10-2024 Chronic Chronic obstructive pulmonary disease and bronchiectasis (2 sources) Bronchitis, not specified as acute or chronic Episodic Disorders of lipid metabolism (2 sources) Mixed hyperlipidemia 03-10-2024 Chronic Diverticulosis and diverticulitis (2 sources) Diverticular disease 03-10-2024 Chronic Hyperplasia of prostate (4 sources) Benign prostatic hypertrophy with outflow obstruction; Translations: [Benign prostatic hyperplasia with lower urinary tract symptoms] Onset: 03-14-2024 Chronic Immunizations and screening for infectious disease (3 sources) Contact with and (suspected) exposure to other viral communicable diseases; Translations: [Contact with and (suspected) exposure to other viral communicable diseases] Episodic Inflammatory conditions of male genital organs (4 sources) Prostatitis; Translations: [Inflammatory disease of prostate, unspecified] Onset: 03-14-2024 Episodic Other diseases of kidney and ureters (2 sources) Acquired renal cyst without neoplastic change; Translations: [Cyst of kidney, acquired] Onset: 03-14-2024 Episodic Other diseases of kidney and ureters (2 sources) Cyst of kidney 03-14-2024 Episodic Other ear and sense organ disorders (6 sources) Sensorineural hearing loss, unilateral, left ear, with unrestricted hearing on the contralateral side; Translations: [Sensorineural hearing loss, unilateral] Onset: 11-28-2022 Chronic Other ear and sense organ disorders (2 sources) Sensorineural hearing loss, bilateral; Translations: [Sensorineural hearing loss, bilateral] 09-13-2023 Chronic Other nutritional; endocrine; and metabolic disorders (4 sources) Morbid obesity; Translations: [Morbid (severe) obesity due to excess calories] Onset: 03-14-2024 Chronic Results Test Name Value Interpretation Reference Range Facility Ambulatory Visit Summaryon 1 08-20-2023 Ambulatory Visit Summary Ambulatory Visit Summary BENNIELEWIS :1965 Visit Date:06/20/2024 Ambulatory Visit Instructions Your Diagnosis BPH with urinary obstruction Prostatitis History of kidney stones Renal cyst Morbid obesity Your Care Team Attending Physician - Stefan ROMANO MD Primary Care Physician - RU GOODSON DO This Is Your Medications List cephalexin (Keflex 500 mg Cap) dutasteride (dutasteride 0.5 mg Cap) tamsulosin (tamsulosin 0.4 mg Cap) Procedures Performed Lithotripsy (1998), Colonoscopy. Discharge Vitals Temperature (Oral) 37 ???C Heart Rate (Peripheral) 79 Respiratory Rate 18 Blood Pressure 124/88 Height 179 cm Height 70 in Weight 181.3 kg Weight 398.86 lb BMI 56.58 What to do next You Need to Schedule the Following Appointments Follow Up with LEONOR LÓPEZ, Stefan Crockett, URL When: Where: [address] [place], [place] [address]- Medications What How Much When Instructions New cephalexin (Keflex 500 mg Cap) 1 Capsules By Mouth As Directed Pt to take 1 tab the day before procedure and the 2nd tab the day of procedure once completed. Pickup at [facility] Unchanged dutasteride (dutasteride 0.5 mg Cap) 1 Capsules By Mouth Every day Unchanged tamsulosin (tamsulosin 0.4 mg Cap) 1 Capsules By Mouth Every day Pharmacy Information [facility]: [address] [place], [place] [id number] [phone] Allergies No Known Medication Allergies Problems Ongoing [...] choosing us for your care. Education Materials Cystoscopy Cystoscopy is a procedure that is used to help diagnose and sometimes treat conditions that affect the lower urinary tract. The lower urinary tract includes the bladder and the urethra. The urethra is the tube that drains urine from the bladder. Cystoscopy is done using a thin, tube-shaped instrument with a light and camera at the end (cystoscope). The cystoscope may be hard or flexible, depending on the goal of the procedure. The cystoscope is inserted through the urethra, into the bladder. Cystoscopy may be recommended if you have: ??? Urinary tract infections that keep coming back. ??? Blood in the urine (hematuria). ??? An inability to control when you urinate (urinary incontinence) or an overactive bladder. ??? Unusual cells found in a urine sample. ??? A blockage in the urethra, such as a urinary stone. ??? Painful urination. ??? An abnormality in the bladder found during an intravenous pyelogram (IVP) or CT scan. Cystoscopy may also be done to remove a sample of tissue to be examined under a microscope (biopsy). Tell a health care provider about: ??? Any allergies you have. ??? All medicines you are taking, including vitamins, herbs, eye drops, creams, and glaq-zyk-juzcmvv medicines. ??? Any problems you or family members have had with anesthetic medicines. ??? Any blood disorders you have. ??? Any surgeries you have had. ??? Any medical conditions you have. ??? Whether you are or may be . What are the risks? Generally, this is a safe procedure. However, problems may occur, including: ??? Infection. ??? Bleeding. ??? Allergic reactions to medicines. ??? Damage to other structures or organs. What happens before the procedure? Medicines Ask your health care provider about: ??? Changing or stopping your regular medicines. This is especially important if you are taking diabetes medicines or blood thinners. ??? Taking medicines such as aspirin and ibuprofen. These medicines can thin your blood. Do not take these medicines unless your health care provider tells you to take them. ??? Taking tikl-ctv-jrkuczx medicines, vitamins, herbs, and supplements. Tests You may have an exam or testing, such as: ??? X-rays of the bladder, urethra, or kidneys. ??? CT scan of the abdomen or pelvis. ??? Urine tests to check for signs of infection. General instructions ??? Follow instructions from your health care provider about eating or drinking restrictions. ??? Ask your health care provider what steps will be taken to help prevent infection. These steps may include: ? Washing skin with a germ-killing soap. ? Taking antibiotic medicine. ??? Plan to have a responsible adult take you home from the hospital or clinic. What happens during the procedure? You will be given one or more of the following: ? A medici (more content not included)... Normal [facility] Urology Office/Clinic Noteon 06-20-2024 Urology Office/Clinic Note Urology Office/Clinic Note Chief Complaint Patient is here for 3 month follow up HPI Staff 58 year old male here for 3 month with PVR. PVR was 74ml Previous DX: BPH w/LUTS, prostatitis, H;O kidney stones, renal cyst and morbid obesity Pt. was started on Flomax 0.4mg qd and Dutasteride 0.5mg qd at last visit. Pt. was given Bactrim DS bid x 7days also at last visit Patient denies any dysuria, blood. He still gets up 3 times per night. He still sometimes does double voids. History of Present Illness Tests reviewed: reviewed UA, renal US, KUB. I have reviewed the previous health record information and history for this patient from Dr. Romano. I have reviewed and verified the staff [...] See HPI. Physical Exam Vitals & Measurements T: 37 ???C(Oral) HR: 79(Peripheral) RR: 18 BP: 124/88 HT: 70 in HT: 179 cm WT: 181.3 kg WT: 398.86 lb BMI: 56.58 General Appearance: alert, no distress, well nourished, well developed male. Assessment/Plan 1. BPH with urinary obstruction (N40.1: Benign prostatic hyperplasia with lower urinary tract symptoms) PSA: 01/31/20 - 2.49 05/30/23 - 2.33 ~Checked by external provider Prior IPSS 24 Has taken a med in the past but does not remember the name. States he will not take this again. Started on Flomax 0.4mg qd and Dutasteride 0.5mg qd at last visit. Pt states he still has a weak stream and is getting up 3x per night. Pt states a friend of his just recently had a UroLift done and is extremely pleased. Discussed UroLift, REZUM, and TURP procedures. Pt is still experiencing LUTS despite being on meds. Recommended cystoscopy to further eval BARAJAS. Pt agrees with plan. -Will schedule cysto. Prophy ATB sent. The risks and benefits for cystoscopy have been discussed. The risks include bleeding, infection, and irritation of the bladder and urinary channel, among others. The patient, after being informed of procedural details and after questions have been answered, wishes to proceed. Full informed consent has been obtained. Will order Local anesthesia. 2. Prostatitis (N41.9: Inflammatory disease of prostate, unspecified) No hx of prostatitis or UTI. Started on Bactrim DS bid x 7 days at last visit. No current issues. UA today shows trace leuks. Asymptomatic. 3. History of kidney stones (Z87.442: Personal history of urinary calculi) Hx of lithotripsy 20+ years ago. No episodes since. Has passed stones on his own, first stone was 23 yo. US R upper quadrant 06/08/23 [facility] - No stones mentioned on the R. KUB 03/18/24 [facility] - no stones. Renal US 03/18/24 [facility] - no stones, hydro, or renal cysts noted. Body habitus limits evaluation. Pt shares he drinks a high volume of tea with lemon. Used to drink 2 gallons per day, has cut back. 4. Renal cyst (N28.1: Cyst of kidney, acquired) US R upper quadrant 06/08/23 [facility] - hypoechoic 2.3 cm rounded area within lateral mid body cortex suspected to represent a cyst. Measures 12.5 cm. Renal US 03/18/24 [facility] - no stones, hydro, or renal cysts noted. Body habitus limits evaluation. 5. Morbid obesity (E66.01: Morbid (severe) obesity due to excess calories) Risk for anesthesia complications. Follow-up With When Contact Information LEONOR LÓPEZ, Stefan Crockett, URL [address] [place] [address]- Additional Instructions: Schedule cysto Patient Education Cystoscopy I, Maureen Dumont, personally scribed for Dr. Romano on 06/20/2024 10:46:18. . Documentation recorded by the scribe, Maureen Dumont, accurately reflects the services(s) I performed and decisions made by me. Authenticated by Dr. Romano on 06/20/2024 10:47:53. Problem List/Past Medical History Ongoing BPH with urinary obstruction Chronic kidney disease stage 2 Diverticular disease History of kidney stones Mixed hyperlipidemia Morbid obesity Prostatitis Renal cyst Historical No qualifying data Procedure/Surgical History Lithotripsy (1998), Colonoscopy. Medications dutasteride 0.5 mg Cap, 0.5 mg= 1 cap(s), Oral, Daily, 11 refills tamsulosin 0.4 mg Cap, 0.4 mg= 1 cap(s), Oral, Daily, 11 refills Allergies No Known Medication Allergies Social History Alcohol - Denies Alcohol Use, 06/20 (more content not included)... Normal [facility] Comment on above: Result Comment: Elec tronically Signed By: Stefan ROMANO MD\.br\Date and Time Signed: 06/20/24 10:48 EST\.br\Electronically Co-Signed By: Maureen Dumont\.br\Date and Time Co-Signed: 06/20/24 10:46 EST Ambulatory Visit Summaryon 0 03-14-2024 Ambulatory Visit [...] Stefan ROMANO MD Where: [facility] [address] [address]- You Need to Schedule the Following Appointments Follow Up with Stefan ROMANO MD, URL When: Where: [facility] [place] [address]- Medications What How Much When Instructions New dutasteride (dutasteride 0.5 mg Cap) 1 Capsules By Mouth Every day Refills: 11 Pickup at [facility] New sulfamethoxazole-trim ethoprim (Bactrim D.S. 800 mg-160 mg Tab) 1 Tablets By Mouth 2 times a day Duration: 14 Days Pickup at [facility] New tamsulosin (tamsulosin 0.4 mg Cap) 1 Capsules By Mouth Every day Refills: 11 Pickup at [facility] Pharmacy Information [facility]: [address] [place] [id number] [phone] Allergies No Known Medication Allergies Problems Ongoing [...] to a (more content not included)... Normal [facility] Urology Office/Clinic Noteon 03-14-2024 Urology Office/Clinic Note [...] possible SE. 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 Pt agrees [...] 23 yo. US R upper quadrant 06/08/23 [facility] - No stones mentioned on the R. [...] Contact Information LEONOR LÓPEZ, Stefan Crockett, URL [facility] [place] [address]- Additional Instructions: 3 mos w/ PVR Patient Education Benign Prostatic Hyperplasia I, Maureen Dumont, personally scribed for Dr. Romano on 03/14/2024 10:03:00. . Documentation recorded by the scribe, Maureen Dumont, accurately reflects the services(s) I performed and decisions made by me. Authenticated by Dr. Romano on 03/14/2024 10:10:00. Problem List/Past Medical History Ongoing BPH with urinary (more content not included)... Normal [facility] Comment on above: Result Comment: Elec tronically Signed By: Stefan ROMANO MD\.br\Date and Time Signed: 03/14/24 10:10 EDT\.br\Electronically Co-Signed By: Maureen Dumont\.br\Date and Time Co-Signed: 03/14/24 10:03 EDT CBC WITH DIFFon 05-30-2023 ABS BASOPHIL 0.02 x10^3ul Normal (0.00 - 0.16) [facility] Comment on above: Order Comment: FACIL ITY: [facility] [id number] Performed By: #### C BC/D, CHEM-C, LIPID, TSHT34, B12+, PSA-S #### [facility] [address] [facility], [address] ABS EOSINOPHIL 0.15 x10^3ul Normal (0.00 - 0.40) [facility] Comment on above: Order Comment: FACIL ITY: [facility] [id number] Performed By: #### C BC/D, CHEM-C, LIPID, TSHT34, B12+, PSA-S #### [facility] [address] [facility], [address] ABS IMMATURE GRANS 0.02 x10^3ul Normal (0.00 - 0.11) [facility] Comment on above: Order Comment: FACIL ITY: [facility] [id number] Performed By: #### C BC/D, CHEM-C, LIPID, TSHT34, B12+, PSA-S #### [facility] [address] [facility], [address] ABS LYMPHOCYTE 1.44 x10^3ul Normal (0.96 - 5.40) [facility] Comment on above: Order Comment: FACIL ITY: [facility] [id number] Performed By: #### C BC/D, CHEM-C, LIPID, TSHT34, B12+, PSA-S #### [facility] [address] [facility], [address] ABS MONOCYTE 0.50 x10^3ul Normal (0.10 - 1.00) [facility] Comment on above: Order Comment: FACIL ITY: [facility] [id number] Performed By: #### C BC/D, CHEM-C, LIPID, TSHT34, B12+, PSA-S #### [facility] [address] [facility], [address] ABS NEUTROPHIL 3.06 x10^3ul Normal (1.50 - 7.00) [facility] Comment on above: Order Comment: [facility]IL [facility] [id number] Performed By: #### C BC/D, CHEM-C, LIPID, TSHT34, B12+, PSA-S #### [facility] [address] [place], [address] Basophils/100 WBC (Bld) 0.4 % Normal () [facility] Comment on above: Order Comment: [facility]ACIL ITY[facility] [id number] Performed By: #### C BC/D, CHEM-C, LIPID, TSHT34, B12+, PSA-S #### [facility] [address] [place], [address] Eosinophils/100 WBC (Bld) 2.9 % Normal () [facility] Comment on above: Order Comment: FACIL ITY[facility] [id number] Performed By: #### C BC/D, CHEM-C, LIPID, TSHT34, B12+, PSA-S #### [facility] [address] [place], [address] Hematocrit (Bld) [Volume fraction] 44.7 % Normal (42.0 - 52.0) [facility] Comment on above: Order Comment: FACIL ITY: [facility] [id number] Performed By: #### C BC/D, CHEM-C, LIPID, TSHT34, B12+, PSA-S #### [facility] [address] [place], [address] Hemoglobin (Bld) [Mass/Vol] 14.7 g/dL Normal (14.0 - 18.0) [facility] Comment on above: Order Comment: FACIL ITY: [facility] [id number] Performed By: #### C BC/D, CHEM-C, LIPID, TSHT34, B12+, PSA-S #### [facility] [address] [place], [address] IMMATURE GRANS (IG) 0.4 % Normal () [facility] Comment on above: Order Comment: FACIL ITY: [facility] [id number] Performed By: #### C BC/D, CHEM-C, LIPID, TSHT34, B12+, PSA-S #### [facility] [address] [place], [address] LYMPS 27.7 % Normal () [facility] Comment on above: Order Comment: FACIL ITY: [facility] [id number] Performed By: #### C BC/D, CHEM-C, LIPID, TSHT34, B12+, PSA-S #### [facility] [address] [facility], [address] MCH (RBC) [Entitic mass] 32.0 pg Normal (27.0 - 33.0) [facility] Comment on above: Order Comment: FACIL ITY: [facility] [id number] Performed By: #### C BC/D, CHEM-C, LIPID, TSHT34, B12+, PSA-S #### [facility] [address] [facility], [address] MCHC (RBC) [Mass/Vol] 32.9 g/dL Normal (30.0 - 37.0) [facility] Comment on above: Order Comment: FACIL ITY: [facility] [id number] Performed By: #### C BC/D, CHEM-C, LIPID, TSHT34, B12+, PSA-S #### [facility] [address] [facility], [address] MCV (RBC) [Entitic vol] 97.4 fL High (80.0 - 94.0) [facility] Comment on above: Order Comment: FACIL ITY: [facility] [id number] Performed By: #### C BC/D, CHEM-C, LIPID, TSHT34, B12+, PSA-S #### [facility] [address] [place], [address] MONOS 9.6 % Normal () [facility] Comment on above: Order Comment: FACIL ITY: [facility] [id number] Performed By: #### C BC/D, CHEM-C, LIPID, TSHT34, B12+, PSA-S #### [facility] [address] [place], [address] PLT 194 x10^3ul Normal (130 - 400) [facility] Comment on above: Order Comment: FACIL ITY: [facility] [id number] Performed By: #### C BC/D, CHEM-C, LIPID, TSHT34, B12+, PSA-S #### [facility] [address] [place], [address] RBC 4.59 x10^6ul Low (4.70 - 6.10) [facility] Comment on above: Order Comment: FACIL ITY: [facility] [id number] Performed By: #### C BC/D, CHEM-C, LIPID, TSHT34, B12+, PSA-S #### [facility] [address] [place], [address] RDW-SD 46.5 fl Normal (37.0 - 49.0) [facility] Comment on above: Order Comment: FACIL ITY: [facility] [id number] Performed By: #### C BC/D, CHEM-C, LIPID, TSHT34, B12+, PSA-S #### [facility] [address] [place], [address] SEGS 59.0 % Normal () [facility] Comment on above: Order Comment: FACIL ITY: [facility] [id number] Performed By: #### C BC/D, CHEM-C, LIPID, TSHT34, B12+, PSA-S #### [facility] [address] [place], [address] WBC 5.19 x10^3ul Normal (3.80 - 10.60) [facility] Comment on above: Order Comment: FACIL ITY: [facility] [id number] Performed By: #### C BC/D, CHEM-C, LIPID, TSHT34, B12+, PSA-S #### [facility] [address] [place], [address] COMP METABOLIC PANEL W/GFRon 05-30-2023 Albumin [Mass/Vol] 4.5 g/dL Normal (3.5 - 5.0) [facility] Comment on above: Performed By: #### C BC/D, CHEM-C, LIPID, TSHT34, B12+, PSA-S #### [facility] [address] [place], [address] ALK PHOS 65 U/L Normal (38 - 126) [facility] Comment on above: Performed By: #### C BC/D, CHEM-C, LIPID, TSHT34, B12+, PSA-S #### [facility] [address] [place], [address] ALT [Catalytic activity/Vol] 57 U/L High (1 - 45) [facility] Comment on above: Performed By: #### C BC/D, CHEM-C, LIPID, TSHT34, B12+, PSA-S #### [facility] [address] [place], [address] AST [Catalytic activity/Vol] 31 U/L Normal (15 - 46) [facility] Comment on above: Performed By: #### C BC/D, CHEM-C, LIPID, TSHT34, B12+, PSA-S #### [facility] [address] [place], [address] Bilirubin [Mass/Vol] 0.7 mg/dL Normal (0.2 - 1.3) [facility] Comment on above: Performed By: #### C BC/D, CHEM-C, LIPID, TSHT34, B12+, PSA-S #### [facility] [address] [place], [address] Calcium [Mass/Vol] 9.5 mg/dL Normal (8.6 - 10.6) [facility] Comment on above: Performed By: #### C BC/D, CHEM-C, LIPID, TSHT34, B12+, PSA-S #### [facility] [address] [place], [address] Chloride [Moles/Vol] 106 mmol/L Normal (98 - 107) [facility] Comment on above: Performed By: #### C BC/D, CHEM-C, LIPID, TSHT34, B12+, PSA-S #### [facility] [address] [place], [address] CO2 [Moles/Vol] 26 mmol/L Normal (22 - 30) [facility] Comment on above: Performed By: #### C BC/D, CHEM-C, LIPID, TSHT34, B12+, PSA-S #### [facility] [address] [place], [address] Creatinine [Mass/Vol] 1.01 mg/dL Normal (0.66 - 1.25) [facility] Comment on above: Performed By: #### C BC/D, CHEM-C, LIPID, TSHT34, B12+, PSA-S #### [facility] [address] [place], [address] GFR- AMER 91.5 ML/M1.7 Normal (60.0 - 161.8) [facility] Comment on above: Performed By: #### C BC/D, CHEM-C, LIPID, TSHT34, B12+, PSA-S #### [facility] [address] [place], [address] GFR-NON AFRIC-AMER 75.6 ML/M1.7 Normal (60.0 - 133.8) [facility] Comment on above: Performed By: #### C BC/D, CHEM-C, LIPID, TSHT34, B12+, PSA-S #### [facility] [address] [place], [address] Glucose [Mass/Vol] 94 mg/dL Normal (74 - 106) [facility] Comment on above: Performed By: #### C BC/D, CHEM-C, LIPID, TSHT34, B12+, PSA-S #### [facility] [address] [place], [address] Potassium [Moles/Vol] 5.0 mmol/L Normal (3.5 - 5.1) [facility] Comment on above: Performed By: #### C BC/D, CHEM-C, LIPID, TSHT34, B12+, PSA-S #### [facility] [address] [place], [address] Protein [Mass/Vol] 7.2 g/dL Normal (6.3 - 8.2) [facility] Comment on above: Performed By: #### C BC/D, CHEM-C, LIPID, TSHT34, B12+, PSA-S #### [facility] [address] [place], [address] Sodium [Moles/Vol] 142 mmol/L Normal (137 - 145) [facility] Comment on above: Performed By: #### C BC/D, CHEM-C, LIPID, TSHT34, B12+, PSA-S #### [facility] [address] [place], [address] Urea nitrogen [Mass/Vol] 12 mg/dL Normal (9 - 20) [facility] Comment on above: Performed By: #### C BC/D, CHEM-C, LIPID, TSHT34, B12+, PSA-S #### [facility] [address] [place], [address] LIPID PROFILEon 05-30-2023 CHOL-HDL RATIO 7.2 High (0.0 - 5.0) [facility] Comment on above: Result Comment: CHOL REFERENCE [...] CHEM-C, LIPID, TSHT34, B12+, PSA-S #### [facility] [address] [facility], [address] Cholesterol [Mass/Vol] 246 mg/dL High (120 - 200) [facility] Comment on above: Performed By: #### C BC/D, CHEM-C, LIPID, TSHT34, B12+, PSA-S #### [facility] [address] [facility], [address] Cholesterol in HDL [Mass/Vol] 34 mg/dL Low (40.0 - 60.0) [facility] Comment on above: Performed By: #### C BC/D, CHEM-C, LIPID, TSHT34, B12+, PSA-S #### [facility] [address] [facility], [address] Cholesterol in LDL [Mass/Vol] 160 mg/dL High (0 - 130) [facility] Comment on above: Performed By: #### C BC/D, CHEM-C, LIPID, TSHT34, B12+, PSA-S #### [facility] [address] [facility], [address] Cholesterol in VLDL [Mass/Vol] 52 mg/dL High (7 - 46) [facility] Comment on above: Performed By: #### C BC/D, CHEM-C, LIPID, TSHT34, B12+, PSA-S #### [facility] [address] [facility], [address] Triglyceride [Mass/Vol] 259 mg/dL High (30 - 150) [facility] Comment on above: Performed By: #### C BC/D, CHEM-C, LIPID, TSHT34, B12+, PSA-S #### [facility] [address] [facility], [address] PSAon 05-30-2023 PROSTATE SP AG 2.33 NG/ML Normal (0.00 - 4.00) [facility] Comment on above: Result Comment: PSA performed on [employer] 5600. An immunometric equimolar test technique. PSA Min. Detection = 0.06 NG/ML. Patient results determined by assays using different manufactures and/or methods may not be comparable. Performed By: #### C BC/D, CHEM-C, LIPID, TSHT34, B12+, PSA-S #### [facility] [address] [facility], [address] T3 FREE, T4 FREE AND TSHon 1 Free T3 [Mass/Vol] 4.62 pg/mL Normal (2.71 - 6.16) [facility] Comment on above: Performed By: #### C BC/D, CHEM-C, LIPID, TSHT34, B12+, PSA-S #### [facility] [address] [facility], [address] Free T4 [Mass/Vol] 1.23 ng/dL Normal (0.64 - 1.79) [facility] Comment on above: Performed By: #### C BC/D, CHEM-C, LIPID, TSHT34, B12+, PSA-S #### [facility] [address] [facility], [address] TSH Qn 1.47 m[IU]/L Normal (0.470 - 4.680) [facility] Comment on above: Performed By: #### C BC/D, CHEM-C, LIPID, TSHT34, B12+, PSA-S #### [facility] [address] [facility], [address] VIT B12 AND FOLATEon 10-18-2 023 Cobalamin (Vitamin B12) [Mass/Vol] 297 pg/mL Normal (239 - 931) [facility] Comment on above: Performed By: #### C BC/D, CHEM-C, LIPID, TSHT34, B12+, PSA-S #### [facility] [address] [facility], [address] FOLIC ACID 5.7 NG/ML Normal (2.8 - 20.0) [facility] Comment on above: Performed By: #### C BC/D, CHEM-C, LIPID, TSHT34, B12+, PSA-S #### [facility] [address] [facility], [address] MRI BRAIN W WO CONTRASTon MRI BRAIN [...] Jeremiah Love MD 12/07/22 Final result Normal [facility] 1. No acute intracranial abnormality. No acute infarct. 2. No abnormality seen within the cerebellar pontine angle cisterns or internal auditory canals. 3. 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 4. Mild global parenchymal volume loss with minimal chronic microvascular ischemic changes. [facility] RADIOLOGY EXAMINATION: MRI OF THE [...] The soft tissues demonstrate no acute abnormality. [facility] RADIOLOGY Jeremiah Love MD - [...] loss with minimal chronic microvascular ischemic changes. [employer] Phone: Radiology Study observation (narrative) [employer] Phone: MRI BRAIN W WO CONTRASTOrder ed By: Jeermiah Love on 12-07-2022 [facility] COVID/FLU/RSV RT-PCRon 08-17 SARS-CoV-2 (COVID-19) RNA FER+probe Ql (Unsp spec) Negative [facility] [employer] Other COVID/FLU/RSV RT-PCR Negative [facility] [employer] Other Vital Signs Date Time Vital Sign Value Performing Clinician Facility 06-20-2024 10:05-0500 Blood Pressure Location Stefan ROMANO [facility] 06-20-2024 10:05-0500 Body temperature 98.6 [degF] Stefansteven ROMANO [facility] 06-20-2024 10:05-0500 Diastolic blood pressure 88 mm[Hg] Stefan ROMANO [facility] 06-20-2024 10:05-0500 Heart rate 79 /min Stefan ROMANO [facility] 2024 10:05-0500 Respiratory rate 18 /min Stefan ROMANO [facility] 06-20-2024 10:05-0500 Systolic blood pressure 124 mm[Hg] Stefan ROMANO [facility] 03-14-2024 09:07-0400 Blood Pressure Location Stefansteven ROMANO [facility] 03-14-2024 09:07-0400 Diastolic blood pressure 78 mm[Hg] Stefansteven ROMANO [facility] 03-14-2024 09:07-0400 Heart rate 72 /min Stefansteven ROMANO [facility] 03-14-2024 09:07-0400 Respiratory rate 16 /min Stefan ROMANO [facility] 03-14-2024 09:07-0400 Systolic blood pressure 132 mm[Hg] Stefan ROMANO [facility] 08-07-2023 18:05-0500 Body height 177.8 cm Alexandra Burdick Other [facility] Other 08-07-2023 18:05-0500 Body mass index (BMI) [Ratio] 56.9 kg/m2 Alexandra Burdick Other [facility] Other 08-07-2023 18:05-0500 Body temperature 98.5 [degF] Alexandra Burdick Other [facility] Other 08-07-2023 18:05-0500 Body weight 179.9 kg Alexandra Burdick Other [facility] Other 08-07-2023 18:05-0500 Respiratory rate 18 /min Alexandra Burdick Other [facility] Other 08-07-2023 18:05-0500 SaO2% (BldA) [Mass fraction] 95 % Alexandra Burdick Other [facility] Other 08-17-2022 11:00-0500 Body height 177.8 cm Jud Farfan Other [facility] Other 08-17-2022 11:00-0500 Body mass index (BMI) [Ratio] 51.22 kg/m2 Jud Farfan Other [facility] Other 08-17-2022 11:00-0500 Body temperature 97.3 [degF] Jud Farfan Other [facility] Other 08-17-2022 11:00-0500 Body weight 161.94 kg Jud Farfan Other [facility] Other 08-17-2022 11:00-0500 Respiratory rate 18 /min Jud Farfan Other [facility] Other 08-17-2022 11:00-0500 SaO2% (BldA) [Mass fraction] 92 % Jud Farfan Other [facility] Other Encounters Encounter Date Encounter Type Care Provider Facility Start: 07-28-2024 ambulatory Stefan Langfordi ty:[id number] Start: 06-20-2024 End: 06-20-2024 ambulatory Stefan ROMANO Facility:[facility] Start: 06-20-2024 End: 06-20-2024 Patient encounter procedure Stefan ROMANO [facility] Start: 03-14-2024 End: 03-14-2024 ambulatory Stefansteven ROMANO Facility:[facility] Start: 03-14-2024 End: 03-14-2024 Patient encounter procedure Stefan ROMANO [facility] Start: 11-14-2023 End: 11-14-2023 ambulatory Not Available Start: 10-29-2023 End: 10-29-2023 ambulatory Not Available Start: 09-12-2023 End: 09-12-2023 ambulatory Not Available Start: 09-12-2023 End: 09-12-2023 Patient encounter procedure Deepti [facility] BEY Comment on above: Sensorineural hearin g loss (SNHL) of both ears (Primary Dx) Start: 08-17-2023 ambulatory Stefan ROMANO Facility :[facility] Start: 08-07-2023 End: 08-07-2023 ambulatory Alexandra Burdick Other [facility] Other Start: 08-07-2023 Office outpatient vi sit 15 minutes Alexandra Burdick [facility] Start: 12-07-2022 End: 12-10-2022 ambulatory KATHERINE LONG [facility] Start: 12-07-2022 End: 12-09-2022 Subsequent hospital visit by physician Mike Meehan Mri Room 1 [facility] MRI Comment on above: Sensorineural hearin g loss (SNHL) of left ear with unrestricted hearing of right ear Start: 11-28-2022 End: 11-29-[address] KATHERINE LONG Facility:[facility] Start: 08-17-2022 End: 08-17-2022 ambulatory Jud Farfan Other [facility] Other Start: 08-17-2022 Office outpatient vi sit 15 minutes Jud Farfan [facility] Procedures Date Procedure Procedure Detail Performing Clinician Start: 12-07-2022 Mri brain brain stem w/o w/contrast material Katherine Long Work Phone: Start: 08-13-1998 Lithotripsy Stefan LANDRY Colonoscopy Stfean ROMANO Plan of Treatment Date Care Activity Detail Author Start: 03-13-2023 Influenza vaccination Flu vacc ine (Season Ended) [facility] Start: 11-07-2013 Shingles vaccine (1 of 2) Shingles vaccine (1 of 2) [facility] Start: 11-07-2008 Screening for malign ant neoplasm of colon [facility] Start: 2003 Lipid panel Lipids [facility] Start: 11-07-1982 DTaP/Tdap/Td vaccine (1 - Tdap) DTaP/Tdap/Td vaccine (1 - Tdap) [facility] Start: 11-07-1981 Hepatitis C screening Hepatitis C sc reen [facility] Start: 11-07-1978 HIV screening HIV screen [facility] Start: 1975 Depression Screen Depression Screen [facility] Start: 05-10-1964 COVID-19 Vaccine (#1) COVID-19 Vacci ne (#1) [facility] Payers Date Payer Category Payer Unknown [id number] 2023 Unknown [id number] 2023 Unknown [employer] [id number] 2023-Present [phone] [address] [place] [address] [id number] 2022 Unknown [id number] 1963 Unknown [id number] 3 1963 Unknown [id number] 2 1963 Unknown [id number] 1963 Unknown [id number] 1963 Unknown [id number] 59 1963 Unknown [id number] 7 1963 Unknown [id number] Social History Date Type Detail Facility Unknown if ever smoked [facility] Other Sex Assigned At [facility] Tobacco smoking status [facility] Tobacco smoking consumption unknown [facility] [employer] Phone: Start: 1965 Sex Assigned At Not on file [facility] [employer] Phone: Start: 03-14-2024 End: 06-20-2024 Tobacco smoking status Never smoked tobacco (finding) [facility] Tobacco smoking status Never [facility] Functional Status Date Assessment Result Facility 06-20-2024 Functional Status N/A [facility] 03-14-2024 Functional Status N/A [facility] Clinical Notes 08-17-2022 to 06-20-2024 Edie Sears MA - 09/12/2023 3:15 PM EST Note Date & Type Note Facility 06-20-2024 Hospital Discharge instructions Patient Education 06/20/2024 10:42:10 Cystoscopy Cystoscopy Cystoscopy is a procedure that is used to help diagnose and sometimes treat conditions that affect the lower urinary tract. The lower urinary tract includes the bladder and the urethra. The urethra is the tube that drains urine from the bladder. Cystoscopy is done using a thin, tube-shaped instrument with a light and camera at the end (cystoscope). The cystoscope may be hard or flexible, depending on the goal of the procedure. The cystoscope is inserted through the urethra, into the bladder. Cystoscopy may be recommended if you have: Urinary tract infections that keep coming back. Blood in the urine (hematuria). An inability to control when you urinate (urinary incontinence) or an overactive bladder. Unusual cells found in a urine sample. A blockage in the urethra, such as a urinary stone. Painful urination. An abnormality in the bladder found during an intravenous pyelogram (IVP) or CT scan. Cystoscopy may also be done to remove a sample of tissue to be examined under a microscope (biopsy). Tell a health care provider about: Any allergies you have. All medicines you are taking, including vitamins, herbs, eye drops, creams, and ghmf-oyo-uejtjmc medicines. Any problems you or family members have had with anesthetic medicines. Any blood disorders you have. Any surgeries you have had. Any medical conditions you have. Whether you are or may be . What are the risks? Generally, this is a safe procedure. However, problems may occur, including: Infection. Bleeding. Allergic reactions to medicines. Damage to other structures or organs. What happens before the procedure? Medicines Ask your health care provider about: Changing or stopping your regular medicines. This is especially important if you are taking diabetes medicines or blood thinners. Taking medicines such as aspirin and ibuprofen. These medicines can thin your blood. Do not take these medicines unless your health care provider tells you to take them. Taking brqq-dkb-gqychih medicines, vitamins, herbs, and supplements. Tests You may have an exam or testing, such as: X-rays of the bladder, urethra, or kidneys. CT scan of the abdomen or pelvis. Urine tests to check for signs of infection. General instructions Follow instructions from your health care provider about eating or drinking restrictions. Ask your health care provider what steps will be taken to help prevent infection. These steps may include: ?Washing skin with a germ-killing soap. ?Taking antibiotic medicine. Plan to have a responsible adult take you home from the hospital or clinic. What happens during the procedure? You will be given one or more of the following: ?A medicine to help you relax (sedative). ?A medicine to numb the area (local anesthetic). The area around the opening of your urethra will be cleaned. The cystoscope will be passed through your urethra into your bladder. Germ-free (sterile) fluid will flow through the cystoscope to fill your bladder. The fluid will stretch your bladder so that your health care provider can clearly examine your bladder [place]. Your doctor will look at the urethra and bladder. Your doctor may take a biopsy or remove stones. The cystoscope will be removed, and your bladder will be emptied. The procedure may vary among health care providers and hospitals. What can I expect after the procedure? After the procedure, it is common to have: Some soreness or pain in your abdomen and urethra. Urinary symptoms. These include: ?Mild pain or burning when you urinate. Pain should stop within a few minutes after you urinate. This may last for up to 1 week. ?A small amount of blood in your urine for several days. ?Feeling like you need to urinate but producing only a small amount of urine. Follow these instructions at home: Medicines Take ugii-pes-vdjshup and prescription medicines only as told by your health care provider. If you were prescribed an antibiotic medicine, take it as told by your health care provider. Do not stop taking the antibiotic even if you start to feel better. General instructions Return to your normal activities as told by your health care provider. Ask your health care provider what activities are safe for you. If you were given a sedative during the procedure, it can affect you for several hours. Do not drive or operate machinery until your health care provider says that it is safe. Watch for any blood in your urine. If the amount of blood in your urine increases, call your health care provider. Follow instructions from your health care provider about eating or drinking restrictions. If a tissue sample was removed for testing (biopsy) during your procedure, it is up to you to get your test results. Ask your health care provider, or the department that is doing the test, when your results will be ready. Drink enough fluid to keep your urine pale yellow. Keep all follow-up visits. This is important. Contact a health care provider if: You have pain that gets worse or does not get better with medicine, especially pain when you urinate. You have trouble urinating. You have more blood in your urine. Get help right away if: You have blood clots in your urine. You have abdominal pain. You have a fever or chills. You are unable to urinate. Summary Cystoscopy is a procedure that is used to help diagnose and sometimes treat conditions that affect the lower urinary tract. Cystoscopy is done using a thin, tube-shaped instrument with a light and camera at the end. After the procedure, it is common to have some soreness or pain in your abdomen and urethra. Watch for any blood in your urine. If the amount of blood in your urine increases, call your health care provider. If you were prescribed an antibiotic medicine, take it as told by your health care provider. Do not stop taking the antibiotic even if you start to feel better. This information is not intended to replace advice given to you by your health care provider. Make sure you discuss any questions you have with your health care provider. Document Revised: 04/12/2022 Document Reviewed: 03/11/2021 Derm[employer]ved Patient Education 2023 [employer]. Follow Up Care 03/14/2024 10:11:07 With:LEONOR LÓPEZ, Stefan Crockett, URL Address: [address] [place], [place] [address]- When: Unknown [facility] 06-20-2024 Note Patient Education Urology Cystoscopy Cystoscopy is a procedure that is used to help diagnose and sometimes treat conditions that affect the lower urinary tract. The lower urinary tract includes the bladder and the urethra. The urethra is the tube that drains urine from the bladder. Cystoscopy is done using a thin, tube-shaped instrument with a light and camera at the end (cystoscope). The cystoscope may be hard or flexible, depending on the goal of the procedure. The cystoscope is inserted through the urethra, into the bladder. Cystoscopy may be recommended if you have: ??? Urinary tract infections that keep coming back. ??? Blood in the urine (hematuria). ??? An inability to control when you urinate (urinary incontinence) or an overactive bladder. ??? Unusual cells found in a urine sample. ??? A blockage in the urethra, such as a urinary stone. ??? Painful urination. ??? An abnormality in the bladder found during an intravenous pyelogram (IVP) or CT scan. Cystoscopy may also be done to remove a sample of tissue to be examined under a microscope (biopsy). Tell a health care provider about: ??? Any allergies you have. ??? All medicines you are taking, including vitamins, herbs, eye drops, creams, and umlk-gge-eakfblr medicines. ??? Any problems you or family members have had with anesthetic medicines. ??? Any blood disorders you have. ??? Any surgeries you have had. ??? Any medical conditions you have. ??? Whether you are or may be . What are the risks? Generally, this is a safe procedure. However, problems may occur, including: ??? Infection. ??? Bleeding. ??? Allergic reactions to medicines. ??? Damage to other structures or organs. What happens before the procedure? Medicines Ask your health care provider about: ??? Changing or stopping your regular medicines. This is especially important if you are taking diabetes medicines or blood thinners. ??? Taking medicines such as aspirin and ibuprofen. These medicines can thin your blood. Do not take these medicines unless your health care provider tells you to take them. ??? Taking vllv-wcv-zofexzp medicines, vitamins, herbs, and supplements. Tests You may have an exam or testing, such as: ??? X-rays of the bladder, urethra, or kidneys. ??? CT scan of the abdomen or pelvis. ??? Urine tests to check for signs of infection. General instructions ??? Follow instructions from your health care provider about eating or drinking restrictions. ??? Ask your health care provider what steps will be taken to help prevent infection. These steps may include: ? Washing skin with a germ-killing soap. ? Taking antibiotic medicine. ??? Plan to have a responsible adult take you home from the hospital or clinic. What happens during the procedure? You will be given one or more of the following: ? A medicine to help you relax (sedative). ? A medicine to numb the area (local anesthetic). ??? The area around the opening of your urethra will be cleaned. ??? The cystoscope will be passed through your urethra into your bladder. ??? Germ-free (sterile) fluid will flow through the cystoscope to fill your bladder. The fluid will stretch your bladder so that your health care provider can clearly examine your bladder [place]. ??? Your doctor will look at the urethra and bladder. Your doctor may take a biopsy or remove stones. ??? The cystoscope will be removed, and your bladder will be emptied. The procedure may vary among health care providers and hospitals. What can I expect after the procedure? After the procedure, it is common to have: ??? Some soreness or pain in your abdomen and urethra. ??? Urinary symptoms. These include: ? Mild pain or burning when you urinate. Pain should stop within a few minutes after you urinate. This may last for up to 1 week. ? A small amount of blood in your urine for several days. ? Feeling like you need to urinate but producing only a small amount of urine. Follow these instructions at home: Medicines ??? Take sixj-swu-xxebdol and prescription medicines only as told by your health care provider. ??? If you were prescribed an antibiotic medicine, take it as told by your health care provider. Do not stop taking the antibiotic even if you start to feel better. General instructions ??? Return to your normal activities as told by your health care provider. Ask your health care provider what activities are safe for you. ??? If you were given a sedative during the procedure, it can affect you for several hours. Do not drive or operate machinery until your health care provider says that it is safe. ??? Watch for any blood in your urine. If the amount of blood in your urine increases, call your health care provider. ??? Follow instructions from your health care provider about eating or drinking restrictions. ??? If a tissue sample was removed for testing (biopsy) during your (more content not included)... [facility] 03-14-2024 Hospital Discharge instructions Patient Education 03/14/2024 [...] urethra. Follow these instructions at home: Take zsze-oro-iluvtvq and prescription medicines only as told by [...] provider. Document Revised: 02/15/2022 Document Reviewed: 02/15/2022 DermApproved Patient Education 2022 [employer] [employer] Follow Up Care 08/17/2023 10:28:34 With:LEONOR LÓPEZ, Stefan Crockett, URL Address: [address] [place], [place] [address]- When: Unknown [facility] [place] 03-14-2024 Note Patient Education Urology Benign Prostatic [...] Follow these instructions at home: ? Take ujzu-[id number]-[id number] and prescription medicines only as told by [...] develop side effec (more content not included)... [facility] 09-12-2023 History of Present illness Narrative Patient was in today to discuss hearing aid options for a hearing aid for his right ear. Patient is a candidate for assistance from [employer]. 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 Patient meets with people in person and on the phone. He has difficulty hearing on the phone. Patient also meets with customers on job sites where he has a lot of difficulty hearing. Patient would like to proceed with [employer] and get a [employer] Pure Chg and Go rechargeable hearing aid for the right ear. 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 Patient filled out application for [employer] assistance and was given the contact number. Recommendations to be sent to [employer]. documented in this encounter [facility] 08-07-2023 Evaluation note Encounter Date Diagnosis [...] understanding and is agreeable to treatment plan. [facility] Other 01-05-2023 Evaluation note* Encounter Date Diagnosis [...] weeks for the cough to go away [facility] Other Evaluation + Plan note Future Appointments Appointment Date:06/20/2024 09:45:00 AM Scheduled Provider:LEONOR LÓPEZ, Stefan Crockett Location:[facility] Appointment Type:URO Office Visit [facility] evaluation note* Diagnosis Sensorineural hearing loss (SNHL) of left ear with unrestricted hearing of right ear documented in this encounter [facility] Work Phone: evaluation note* Diagnosis Sensorineural hearing loss (SNHL) of both ears- Primary [facility] - [facility]* Type Description Date Surgical History tonsillectomy Surgical History tendon repair Surgical History colonoscopy Hospitalization History No Hospitalization histo ry information [facility] Other History general Narrative - Reported* Type Description Date Surgical History tonsillectomy Surgical History tendon repair Surgical History colonoscopy Hospitalization History See Above [facility] Other Hospital course Narrative No data available for this section [facility] progress note No data available for this section [facility] Summary Purpose Family History No Family History Records FoundNo Family History Records FoundNo Family History Records FoundNo Family History Records Found No data available for this section No data available for this section No Family History Records Found Advance Directives No Advanced Directives Records FoundNo Advanced Directives Records FoundNo Advanced Directives Records FoundNo Advanced Directives Records FoundNo Advanced Directives Records Found Reason for Referral Specialty Diagnoses / Procedures Referred By Contac t Referred To Contact Radiology Diagnoses Sensorineural hearing loss (SNHL) of left ear with unrestricted hearing of right ear H90.42 (ICD-10-CM) - Sensorineural hearing loss (SNHL) of left ear with unrestricted hearing of right ear Procedures MRI BRAIN W WO CONTRAST CHG MRI BRAIN BRAIN STEM W/O W/CONTRAST MATERIAL 70988 - CHG MRI BRAIN BRAIN STEM W/O W/CONTRAST MATERIAL Katherine Long Jr. [address] [address] Referral ID Status Reason Start Date Expiration Date Visits Re quested Visits Authorized [id number] Closed 12/03/2022 12/03/2023 1 1 Additional Source Comments REASON FOR VISIT (unrecogniz ed section and content) Specialty Diagnoses / Procedures Referred By Contac t Referred To Contact Radiology Diagnoses Sensorineural hearing loss (SNHL) of left ear with unrestricted hearing of right ear H90.42 (ICD-10-CM) - Sensorineural hearing loss (SNHL) of left ear with unrestricted hearing of right ear Procedures MRI BRAIN W WO CONTRAST CHG MRI BRAIN BRAIN STEM W/O W/CONTRAST MATERIAL 11333 - CHG MRI BRAIN BRAIN STEM W/O W/CONTRAST MATERIAL Katherine Long H Jr. [address] [facility] [address] [place] [address] Referral ID Status Reason Start Date Expiration Date Visits Re quested Visits Authorized [id number] Closed 12/03/2022 12/03/2023 1 1 Reason Comments Hearing Aid Discussion (unrecognized sect ion and content) No Status Records FoundNo Status Records FoundNo Status Records FoundNo Status Records FoundNo Status Records Found INFORMATION SOURCE (unrecogn ized section and content) DATE CREATED AUTHOR 12/03/2022 [facility] DATE CREATED AUTHOR AUTHOR'S ORGANIZ ATION 12/09/2022 [facility] DATE CREATED AUTHOR AUTHOR'S ORGANIZ ATION 06/01/2023 [facility] DATE CREATED AUTHOR AUTHOR'S ORGANIZ ATION 11/15/2023 [facility] DATE CREATED AUTHOR AUTHOR'S ORGANIZ ATION 06/22/2024 [facility] Care Teams (unrecognized sec tion and content) Hospitalist Relationship Specialty Start Date End Date Ru Goodson MD [address] [place], [place] [id number] PCP - General Family Medicine 12/05/22 FOR [...] BE BASED ON THE PRIMARY CLINICAL RECORDS. [facility] [employer] provides no warranty or guarantee of the accuracy or completeness of information in this document.
[2024-07-28] MEDS: LIDOCAINE 2% JELLY 10 ML UR (08:35)
[2024-07-28 08:43] VITALS: BP 105/59; BP 125/59; PULSE 71; PULSE 73; O2SAT 92; O2SAT 94
--- NOTE | 2024-07-28 08:49 | PM.URSON ---
Urology Surgery Operative Note Operative Note Procedure Date: 07/28/24 Time Out Performed: yes Pre-op Diagnosis: BPH with LUTS refractory to medications Post-op Diagnosis: same as pre-op Procedures performed: 1. Cystoscopy. Anesthesia: local Primary Surgeon: Stefan Romano Complications: None Estimated blood loss (mL): 0 Findings: 1. Trilobar obstruction. 2. Severe bladder damage with open deep diverticuli. No bladder tumors. Specimens: None Indications for Procedures: This gentleman has rather thickened bladder outlet obstructive symptoms despite taking Flomax and dutasteride. He now presents for cystoscopy. He has signed an informed consent after risks were explained. Detailed description of Procedure: The patient was kept on the rsix mile run bed and brought into the operating room. He was in the supine position. Genitalia were sterilely prepped and draped in the usual fashion. 2% lidocaine gel was passed per urethra. Timeout was done by all parties in the room. I started by passing a flexible cystoscope per urethra and into the bladder. The anterior urethra was normal. The prostatic urethra revealed trilobar obstruction. He had a very dramatically high median lobe that nearly coapted with the anterior prostate. The lateral lobes were also obstructing. Panendoscopy in the bladder revealed very thick trabeculation with deep open diverticuli diffusely. No bladder tumors were noted. The scope was retroflexed and there was no new findings. The scope was then removed. He was then discharged to home. The plan the patient is highly desirous for TURP. This will get scheduled.
== END 2024-07-28 08:55 | disposition home or self-care (01) ==
PROVIDERS: PCP Family Medicine; Visit Provider Urology
PROC: (CPT 52000; principal; 2024-07-28 08:15)
DX: N40.1 Benign prostatic hyperplasia with lower urinary tract symptoms (principal); N41.9 Inflammatory disease of prostate, unspecified; E66.01 Morbid (severe) obesity due to excess calories; E78.5 Hyperlipidemia, unspecified; N32.89 Other specified disorders of bladder; N32.3 Diverticulum of bladder; N18.2 Chronic kidney disease, stage 2 (mild); Z87.442 Personal history of urinary calculi; N28.1 Cyst of kidney, acquired; Z68.43 Body mass index [BMI] 50.0-59.9, adult
CPT/HCPCS: 52000